=== PATIENT | female | born 1990 | race Caucasian/White ===

== ENCOUNTER 2016-06-15 14:00 | Inpatient (IN) | payer MEDICAID, OTHER ==
--- NOTE | 2016-06-15 17:08 | ED ---
Psych HPI - General Chief Complaint: Psychiatric Symptoms Stated Complaint: Mental Health Time Seen by Provider: 06/15/16 14:07 Source: patient, police Mode of arrival: ambulatory - History of Present Illness Initial Comments: Patient complains of depression and suicidal ideation. She has no fever or chills. She has no chest pain or shortness of breath. She has no belly or back pain. She has not taken any illicit substances. She has not tried to harm herself today. - Related Data Home Medications Medication Instructions Recorded Confirmed Divalproex Sodium [Depakote] 1,000 mg PO HS 06/15/16 06/15/16 Lurasidone [Latuda] 80 mg PO HS 06/15/16 06/15/16 risperiDONE 3 mg PO DAILY 06/15/16 06/15/16 Allergies Allergy/AdvReac Type Severity Reaction Status Date / Time acetaminophen [From Tylenol] Allergy Vomiting Verified 06/15/16 14:40 ibuprofen [From Motrin] Allergy Vomiting Verified 06/15/16 14:40 Review of Systems ROS Statement: Those systems with pertinent positive or pertinent negative responses have been documented in the HPI. ROS Other: All systems not noted in ROS Statement are negative. Past Medical History Additional Past Medical History / Comment(s): chronic back and leg pain, h/o leukemia History of Any Multi-Drug Resistant Organisms: None Reported Past Surgical History: Appendectomy Additional Past Surgical History / Comment(s): abdominoplasty Past Psychological History: Anxiety, Bipolar, Depression Smoking Status: Former smoker Past Alcohol Use History: None Reported Additional Past Alcohol Use History / Comment(s): Patient is a smoker one pack per day for 3 years. She denies any medical marijuana, marijuana, street drug use. She denies any alcohol use. She is single and has 3 children. Past Drug Use History: None Reported - Past Family History Father Additional Family Medical History / Comment(s): Father is 52 years of age with possible coronary artery disease. Mother Additional Family Medical History / Comment(s): Mother from emphysema. Brother(s) Additional Family Medical History / Comment(s): Patient has 2 brothers with no major medical problems. Patient does not have any sisters. General Exam Limitations: no limitations General appearance: alert, in no apparent distress Head exam: Present: atraumatic, normocephalic, normal inspection Eye exam: Present: normal appearance, PERRL, EOMI. Absent: scleral icterus, conjunctival injection, periorbital swelling ENT exam: Present: normal exam, mucous membranes moist Neck exam: Present: normal inspection. Absent: tenderness, meningismus, lymphadenopathy Respiratory exam: Present: normal lung sounds bilaterally. Absent: respiratory distress, wheezes, rales, rhonchi, stridor Cardiovascular Exam: Present: regular rate, normal rhythm, normal heart sounds. Absent: systolic murmur, diastolic murmur, rubs, gallop, clicks GI/Abdominal exam: Present: soft, normal bowel sounds. Absent: distended, tenderness, guarding, rebound, rigid Extremities exam: Present: normal inspection, full ROM, normal capillary refill. Absent: tenderness, pedal edema, joint swelling, calf tenderness Back exam: Present: normal inspection Neurological exam: Present: alert, oriented X3, CN II-XII intact Psychiatric exam: Present: normal affect, normal mood Skin exam: Present: warm, dry, intact, normal color. Absent: rash Course Vital Signs 06/15/16 14:03 Temperature 97.0 F L Pulse Rate 97 Respiratory 20 Rate Blood Pressure 117/79 O2 Sat by Pulse 97 Oximetry Medical Decision Making - Medical Decision Making Patient presents with suicidal ideation. Alcohol level is 0. Patient was about a by psychiatry. She will be admitted to their service. - Lab Data Lab Results 06/15/16 Range/Units 14:49 Urine Opiates Screen Detected H (NotDetected) Ur Oxycodone Screen Not Detected (NotDetected) Urine Methadone Screen Detected H (NotDetected) Ur Propoxyphene Screen Not Detected (NotDetected) Ur Barbiturates Screen Not Detected (NotDetected) U Tricyclic Antidepress Not Detected (NotDetected) Ur Phencyclidine Scrn Not Detected (NotDetected) Ur Amphetamines Screen Not Detected (NotDetected) U Methamphetamines Scrn Not Detected (NotDetected) U Benzodiazepines Scrn Not Detected (NotDetected) Urine Cocaine Screen Not Detected (NotDetected) U Marijuana (THC) Screen Not Detected (NotDetected) Disposition Clinical Impression: Depression Disposition: TRANSFER TO PSYCH HOSP/UNIT Condition: Fair Time of Disposition: 17:08
[2016-06-15] MEDS ORDERED: LORazepam 2 MG/ML SYRINGE IM STA (17:47)
[2016-06-15] MEDS ORDERED: traMADol 50 MG TAB PO STA (19:30)
[2016-06-15] MEDS ORDERED: MAGNESIUM HYDROXIDE 2,400 MG/10 ML CUP PO PRN (20:38)
[2016-06-15] MEDS ORDERED: LORazepam 2 MG/ML SYRINGE IM PRN (20:48)
[2016-06-15] MEDS ORDERED: WATER FOR INJECTION, STERILE 10 ML IV ONE (21:17)
[2016-06-15] MEDS: ZIPRASIDONE 20 MG VIAL IM PRN (21:32)
[2016-06-15] MEDS: DIVALPROEX 500 MG TABLET.DR PO SCH (21:46)
[2016-06-15] MEDS: MIRTAZAPINE 15 MG TAB PO SCH (21:46)
[2016-06-15] MEDS: clonazePAM 1 MG TAB PO SCH (21:46)
[2016-06-15] MEDS: TRIHEXYPHENIDYL 2 MG TAB PO SCH (22:04)
[2016-06-16] MEDS ORDERED: LEVOTHYROXINE 50 MCG TAB PO SCH (06:30)
[2016-06-16] MEDS: TRIHEXYPHENIDYL 2 MG TAB PO SCH ×3 (08:28→20:18)
[2016-06-16] MEDS: DIVALPROEX 500 MG TABLET.DR PO SCH ×2 (08:30→20:19)
[2016-06-16 08:47] LABS: Basophils # (A) 0.1 k/uL (0-0.2); Basophils % (A) 1 %; CHCM 34.5; Eosinophils # (A) 0.2 k/uL (0-0.7); Eosinophils % (A) 3 %; HCT 41.3 % (34.0-46.0); HDW 2.49; HGB 13.8 gm/dL (11.4-16.0); Luc # (Auto) 0.13; Luc % (Auto) 2; Lymphocytes # (A) 2.4 k/uL (1.0-4.8); Lymphocytes % (A) 37 %; MCH 29.9 pg (25.0-35.0); MCHC 33.3 g/dL (31.0-37.0); Mean Platelet Volume 6.9; Monocytes # (A) 0.5 k/uL (0-1.0); Monocytes % (A) 8 %; Neutrophils # (A) 3.3 k/uL (1.3-7.7); Neutrophils % (A) 50 %; RBC 4.59 m/uL (3.80-5.40); RDW 12.7 % (11.5-15.5); WBC 6.5 k/uL (3.8-10.6); WBC (Perox) 6.93
[2016-06-16 09:12] LABS: ALT 60 U/L (9-52); AST 40 U/L (14-36); Alkaline Phosphatase 59 U/L (38-126); Anion Gap 15 mmol/L; Blood Urea Nitrogen 13 mg/dL (7-17); Calcium 9.3 mg/dL (8.4-10.2); Carbon Dioxide 30 mmol/L (22-30); Chloride 97 mmol/L (98-107); Glucose 140 mg/dL (74-99); Non-African American GFR(MDRD) >60 (>60 ml/min/1.73 sqM); Potassium 3.8 mmol/L (3.5-5.1); Sodium 142 mmol/L (137-145); Total Bilirubin 0.5 mg/dL (0.2-1.3); Total Protein 7.3 g/dL (6.3-8.2)
[2016-06-16] MEDS: NICOTINE 7MG/24HR PATCH TRANSDERM SCH (12:48)
[2016-06-16] MEDS: DICLOFENAC SODIUM GEL 100 GM TUBE TOPICAL SCH ×3 (13:36→20:19)
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
[2016-06-16] MEDS ORDERED: HYDROcodone/APAP 10-325MG 1 EACH TAB PO ONE (14:23)
[2016-06-16] MEDS ORDERED: WATER FOR INJECTION, STERILE 10 ML IV ONE ×2 (14:24→20:32)
[2016-06-16] MEDS: ZIPRASIDONE 20 MG VIAL IM PRN (14:26)
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
[2016-06-16] MEDS: MIRTAZAPINE 15 MG TAB PO SCH (20:19)
[2016-06-16] MEDS: clonazePAM 1 MG TAB PO SCH (20:19)
[2016-06-16] MEDS: HYDROcodone/APAP 5-325MG 1 EACH TAB PO PRN (20:23)
[2016-06-17] MEDS: LORazepam 1 MG TAB PO PRN ×2 (01:47→11:22)
[2016-06-17] MEDS: TRIHEXYPHENIDYL 2 MG TAB PO SCH ×4 (08:35→21:07)
[2016-06-17] MEDS: NICOTINE 7MG/24HR PATCH TRANSDERM SCH (08:39)
[2016-06-17] MEDS: DIVALPROEX 500 MG TABLET.DR PO SCH ×2 (08:39→21:03)
[2016-06-17] MEDS: DICLOFENAC SODIUM GEL 100 GM TUBE TOPICAL SCH ×4 (08:39→21:09)
[2016-06-17] MEDS: HYDROcodone/APAP 5-325MG 1 EACH TAB PO PRN (08:40)
[2016-06-17] MEDS ORDERED: NICOTINE 7MG/24HR PATCH TRANSDERM STA (11:46)
--- NOTE | 2016-06-17 13:17 | P.PN ---
Subjective Psychiatric progress notes. Patient repeatedly comes to the office wanting more pain medications and also at a higher dose of Habitrol. Though she claimed that she has not been smoking lately according to her she was using Habitrol 21 mg on a daily basis as it calms her down and wants to continue on it. She also persistently complains of with his somatic symptoms aches and pains all over the body, that she cannot walk straight because of her hips are injured, and pain chest and she believes there is something wrong with her breast and so on. She is requesting a higher dose of [place]. Also asking for medication for ADHD and claims that she had done well while she was on methylphenidate. Has not been attending treatment activities. Mental status. Slightly heavy built female with fair grooming, rather restless walking on the floor constantly coming to my office or at the nurses station asking for more medication. During the evaluation she was spontaneously talking going to tangents focusing on her physical symptoms and in different parts of her body mostly pain and stating that she is dying because of some disease nobody seemed to recognize. Patient is hyperverbal and tangential. Expresses delusional ideations regarding devilr trying to get to her and people call her crazy when she talks about this and about God. Patient had slept well. And regular with her eating habits. Some medication adjustment been done i.e. increase Habitrol 14 mg every 24 hours , increased [place] to 7.5/325 twice a day. She also started on Lexapro. Objective - Vital Signs Vital signs: Vital Signs Temp 97.8 F 06/17/16 01:48 Pulse 97 06/17/16 09:24 Resp 16 06/17/16 09:24 BP 135/72 06/17/16 09:24 Pulse Ox 97 06/15/16 18:46 - Labs CBC & Chem 7: 06/16/16 08:32 06/16/16 08:32
[2016-06-17] MEDS: MAG HYDROX/AL HYDROX/SIMETH 30 ML CUP PO PRN ×2 (13:19→18:46)
[2016-06-17] MEDS: HYDROcodone/APAP 7.5-325MG 1 EACH TAB PO SCH (17:39)
[2016-06-17] MEDS ORDERED: LURASIDONE 80 MG TAB PO SCH (18:30)
[2016-06-17] MEDS: MIRTAZAPINE 15 MG TAB PO SCH (21:02)
[2016-06-17] MEDS: clonazePAM 1 MG TAB PO SCH (21:03)
[2016-06-18] MEDS: LORazepam 1 MG TAB PO PRN (01:23)
[2016-06-18] MEDS: HYDROcodone/APAP 7.5-325MG 1 EACH TAB PO SCH ×2 (07:20→17:30)
[2016-06-18] MEDS: MAG HYDROX/AL HYDROX/SIMETH 30 ML CUP PO PRN ×2 (07:58→18:45)
[2016-06-18] MEDS: NICOTINE 14MG/24HR PATCH TRANSDERM SCH (09:02)
[2016-06-18] MEDS: ESCITALOPRAM 10 MG TAB PO SCH (09:02)
[2016-06-18] MEDS: TRIHEXYPHENIDYL 2 MG TAB PO SCH ×3 (09:03→20:36)
[2016-06-18] MEDS: DIVALPROEX 500 MG TABLET.DR PO SCH (09:05)
[2016-06-18] MEDS: DICLOFENAC SODIUM GEL 100 GM TUBE TOPICAL SCH ×4 (09:06→20:27)
[2016-06-18] MEDS ORDERED: HALOPERIDOL 5 MG TAB PO STA (11:16)
[2016-06-18] MEDS ORDERED: WATER FOR INJECTION, STERILE 10 ML IV ONE (12:36)
[2016-06-18] MEDS: ZIPRASIDONE 20 MG VIAL IM PRN (12:38)
[2016-06-18] MEDS ORDERED: QUEtiapine 50 MG TAB PO SCH (13:00)
--- NOTE | 2016-06-18 13:24 | P.PN ---
Subjective Psychiatric progress notes. Though patient is showing some limited improvement, by and large she remains restless easily agitated and pacing the floor on the unit. Constantly focusing on the need for increasing her pain medications and states that she has possibly cancer and is dying and nobody cares. Patient slept rather well and her participation in the milieu based treatment programs are limited as she becomes quite distracted and interfering with the treatment activity with the result she was asked to leave if she cannot maintain a certain degree of self- control. Patient comes to the office frequently with one complained or other and asking for more medications. Mental status. Patient is limited in her grooming and constantly touching the tongue with her fingers and rubs on the face claiming that her face is dry and that's why she is doing this. Patient speaks spontaneously talking about her various physical symptoms and the need for higher and frequent dose off her pain medications. Patient is hyperverbal often with significant tangentiality and showing her preoccupation with somatic concerns. Thought process somewhat rapid and tangential also. Though she did not report being depressed her somatic preoccupation and anxiety indicates possibility of an underlying depressive trend. Slept well last night. Indicates that she cannot take Neurontin or Latuda. Hence Latuda is discontinued. Patient is limited in her insight and judgment. In view of her agitated state Haldol 5 mg 4 times a day ordered. Objective - Vital Signs Vital signs: Vital Signs Temp 97.5 F L 06/18/16 06:56 Pulse 77 06/18/16 06:56 Resp 16 06/18/16 06:56 BP 133/72 06/18/16 06:56 Pulse Ox 97 06/15/16 18:46 - Labs CBC & Chem 7: 06/16/16 08:32 06/16/16 08:32
[2016-06-18] MEDS: DIVALPROEX ER 500 MG TAB.ER.24H PO SCH ×2 (15:49→20:27)
[2016-06-18] MEDS: HALOPERIDOL 5 MG TAB PO SCH ×2 (15:51→20:28)
[2016-06-18] MEDS: MIRTAZAPINE 15 MG TAB PO SCH (20:27)
[2016-06-18] MEDS: clonazePAM 1 MG TAB PO SCH (20:27)
[2016-06-19] MEDS: ESCITALOPRAM 10 MG TAB PO SCH (08:22)
[2016-06-19] MEDS: NICOTINE 14MG/24HR PATCH TRANSDERM SCH (08:22)
[2016-06-19] MEDS: HYDROcodone/APAP 7.5-325MG 1 EACH TAB PO SCH ×2 (08:23→17:27)
[2016-06-19] MEDS: DICLOFENAC SODIUM GEL 100 GM TUBE TOPICAL SCH ×4 (08:24→22:58)
[2016-06-19] MEDS: HALOPERIDOL 5 MG TAB PO SCH ×3 (08:24→20:32)
[2016-06-19] MEDS: DIVALPROEX ER 500 MG TAB.ER.24H PO SCH ×3 (08:24→20:32)
[2016-06-19] MEDS: TRIHEXYPHENIDYL 2 MG TAB PO SCH ×3 (08:29→20:33)
[2016-06-19] MEDS: MAG HYDROX/AL HYDROX/SIMETH 30 ML CUP PO PRN ×3 (10:51→21:14)
[2016-06-19] MEDS: LORazepam 1 MG TAB PO PRN (10:51)
[2016-06-19] MEDS ORDERED: WATER FOR INJECTION, STERILE 10 ML IV ONE (14:18)
[2016-06-19] MEDS ORDERED: ZIPRASIDONE 20 MG VIAL IM ONE (14:19)
[2016-06-19] MEDS: ZIPRASIDONE 20 MG VIAL IM PRN (14:19)
--- NOTE | 2016-06-19 14:59 | P.PN ---
Subjective Psychiatric progress notes. Patient's mental status and overall activity has not shown any significant improvement though she is not as persistent in coming to my office repeatedly and asking for increased pain medications. All the same patient indicates that she is suffering from pain and I am letting her day from pain by refusing to increase her medications. She reported that she slept very well but has not been attending any of the treatment activities as she claimed that she has ADHD and could not sit and concentrate. Then asking for Adderall or Concerta. Mental status examination. Patient is a relatively average built female dressed in her own clothes, somewhat restless and pacing the floor back and forth talking to herself and overheard saying how painful her condition is and nobody is here helping her and letting her day. Patient comes readily for the evaluation and spontaneously started speaking about "her suffering ". Speech was spontaneous with increased in rate. Thought processes rapid and tangential. Patient is preoccupied with her fears of having some serious illness mostly related to pain. Affect inappropriate. Anxious mood. Limited in insight and judgment. Continue current treatment plans. Objective - Vital Signs Vital signs: Vital Signs Temp 97.5 F L 06/18/16 06:56 Pulse 77 06/18/16 06:56 Resp 16 06/18/16 06:56 BP 133/72 06/18/16 06:56 Pulse Ox 97 06/15/16 18:46 - Labs CBC & Chem 7: 06/16/16 08:32 06/16/16 08:32
[2016-06-19] MEDS: clonazePAM 1 MG TAB PO SCH (20:05)
[2016-06-19] MEDS: MIRTAZAPINE 15 MG TAB PO SCH (20:06)
[2016-06-20] MEDS: LORazepam 1 MG TAB PO PRN ×3 (02:53→18:13)
[2016-06-20] MEDS: MAG HYDROX/AL HYDROX/SIMETH 30 ML CUP PO PRN ×3 (03:11→18:34)
[2016-06-20] MEDS: NICOTINE 14MG/24HR PATCH TRANSDERM SCH (08:12)
[2016-06-20] MEDS: HYDROcodone/APAP 7.5-325MG 1 EACH TAB PO SCH ×3 (08:13→17:30)
[2016-06-20] MEDS: DICLOFENAC SODIUM GEL 100 GM TUBE TOPICAL SCH ×4 (08:14→20:53)
[2016-06-20] MEDS: ESCITALOPRAM 10 MG TAB PO SCH (08:16)
[2016-06-20] MEDS: HALOPERIDOL 5 MG TAB PO SCH ×3 (09:19→20:55)
[2016-06-20] MEDS: TRIHEXYPHENIDYL 2 MG TAB PO SCH ×3 (09:19→20:56)
[2016-06-20] MEDS: DIVALPROEX ER 500 MG TAB.ER.24H PO SCH ×3 (09:19→20:55)
--- NOTE | 2016-06-20 15:33 | P.PN ---
Subjective Psychiatric progress notes. Patient was been showing restlessness and constantly talking about her need for ritalin, and increase of pain medications as well as benzodiazepines has been pacing back and forth on the unit, trying to come to my office so many times with the same request, however comparatively much less than at the time of admission. Patient is constantly complaining of pain and anxiousness. Has been sleeping well. She has not been able to attend any of the milieu based treatment activities so far because of her restless fidgety nature. Mental status. Patient is dressed in her own clothes and frequently pacing in that sense certain degree of psychomotor restlessness present. When seen patient was hyperverbal with rapid speech and thought process, focusing on her request for more medications. Patient states that she is depressed and quite anxious although there is no depressive behavior noticeable, on the other hand she is somewhat hyperactive and hyperverbal. Maintains good eye contact when she is in the office and answers to questions but then goes into tangents to other areas. No evidence of any hallucinatory experience though some of her somatic preoccupations almost borders to delusional thinking. Limited in insight and judgment. Continue current treatment plans. On the promise that she would agree for Tylenol 5/325 from tomorrow just for 1 day she will be on 7.5/325 3 times a day just for today. Objective - Vital Signs Vital signs: Vital Signs Temp 97.6 F 06/20/16 06:49 Pulse 73 06/20/16 06:49 Resp 20 06/20/16 06:49 BP 99/71 06/20/16 06:49 Pulse Ox 97 06/15/16 18:46 Intake & Output 06/19/16 06/20/16 06/20/16 18:59 06:59 18:59 Weight 85.5 kg - Labs CBC & Chem 7: 06/16/16 08:32 06/16/16 08:32
[2016-06-20] MEDS: clonazePAM 1 MG TAB PO SCH (20:52)
[2016-06-20] MEDS: MIRTAZAPINE 15 MG TAB PO SCH (20:53)
[2016-06-21 07:19] VITALS: RESP 16
[2016-06-21] MEDS: DICLOFENAC SODIUM GEL 100 GM TUBE TOPICAL SCH ×5 (08:24→20:10)
[2016-06-21] MEDS: DIVALPROEX ER 500 MG TAB.ER.24H PO SCH ×3 (08:24→20:06)
[2016-06-21] MEDS: HALOPERIDOL 5 MG TAB PO SCH ×3 (08:24→20:06)
[2016-06-21] MEDS: ESCITALOPRAM 10 MG TAB PO SCH (08:24)
[2016-06-21] MEDS: NICOTINE 14MG/24HR PATCH TRANSDERM SCH (08:25)
[2016-06-21] MEDS: HYDROcodone/APAP 7.5-325MG 1 EACH TAB PO SCH (08:25)
[2016-06-21] MEDS: TRIHEXYPHENIDYL 2 MG TAB PO SCH ×3 (08:26→20:09)
[2016-06-21] MEDS: LORazepam 1 MG TAB PO PRN ×2 (09:48→17:46)
[2016-06-21] MEDS ORDERED: WATER FOR INJECTION, STERILE 10 ML IV ONE (10:38)
[2016-06-21] MEDS: ZIPRASIDONE 20 MG VIAL IM PRN (10:38)
[2016-06-21] MEDS ORDERED: ZIPRASIDONE 20 MG VIAL IM ONE (10:38)
--- NOTE | 2016-06-21 14:19 | P.PN ---
Subjective Psychiatric progress notes. Patient is a 25-year-old white female who has been restless and anxious with delusional-like preoccupation of having some illness that is making her whole body ache and often coming asking for more pain medication, stating that otherwise she would be dying. Patient is quite repetitious with her stories. Has not been participating in any of the treatment activities because of her intrusive behavior. Slept well. Seems to be taking fair care of her needs. Mental status. Patient is an average built adequately groomed female who is restless and pacing. Dressed in her own clothes she readily comes for evaluation and spontaneously starts talking about her fears of having some illness and the persistent pain. Patient claims that she is quite anxious and depressed. Speech is spontaneous and rapid. Thought process also rapid and shows hypochondriac or preoccupation with her somatic symptoms. No evidence of any other delusions or hallucinations. Limited as far as insight and judgment. Continue current treatment plans. Objective - Vital Signs Vital signs: Vital Signs Temp 97.7 F 06/21/16 07:16 Pulse 69 06/21/16 07:16 Resp 16 06/21/16 07:16 BP 99/71 06/20/16 06:49 Pulse Ox 97 06/15/16 18:46 Intake & Output 06/20/16 06/21/16 06/21/16 18:59 06:59 18:59 Weight 85.5 kg - Labs CBC & Chem 7: 06/16/16 08:32 06/16/16 08:32
[2016-06-21] MEDS: HYDROcodone/APAP 5-325MG 1 EACH TAB PO SCH ×2 (16:19→20:07)
[2016-06-21] MEDS ORDERED: HYDROcodone/APAP 7.5-325MG 1 EACH TAB PO SCH (18:30)
[2016-06-21] MEDS: clonazePAM 1 MG TAB PO SCH (20:07)
[2016-06-21] MEDS: MIRTAZAPINE 15 MG TAB PO SCH (20:08)
[2016-06-21] MEDS: MAG HYDROX/AL HYDROX/SIMETH 30 ML CUP PO PRN (21:10)
[2016-06-22] MEDS: LORazepam 1 MG TAB PO PRN (06:31)
[2016-06-22 06:53] VITALS: BP 126/84; PULSE 74; TEMP 97.8
[2016-06-22] MEDS: MAG HYDROX/AL HYDROX/SIMETH 30 ML CUP PO PRN (07:01)
[2016-06-22] MEDS: HALOPERIDOL 5 MG TAB PO SCH (08:47)
[2016-06-22] MEDS: HYDROcodone/APAP 5-325MG 1 EACH TAB PO SCH (08:48)
[2016-06-22] MEDS: ESCITALOPRAM 10 MG TAB PO SCH (08:48)
[2016-06-22] MEDS: DICLOFENAC SODIUM GEL 100 GM TUBE TOPICAL SCH ×2 (08:49→11:57)
[2016-06-22] MEDS: NICOTINE 14MG/24HR PATCH TRANSDERM SCH (08:49)
[2016-06-22] MEDS: DIVALPROEX ER 500 MG TAB.ER.24H PO SCH (08:50)
[2016-06-22] MEDS: TRIHEXYPHENIDYL 2 MG TAB PO SCH (08:50)
[2016-06-22] MEDS ORDERED: clonazePAM 0.5 MG TAB PO PRN (10:48)
[2016-06-22] MEDS ORDERED: HALOPERIDOL DECANOATE 50 MG/ML 1 ML VIAL IM STA (10:49)
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
== END 2016-06-22 12:46 | disposition home or self-care (01) | DRG 885 ==
LOC: EC 14:00 → 3MHU 19:45
PROVIDERS: ADMIT Psychiatry & Neurology Psychiatry; ATTEND Psychiatry & Neurology Psychiatry
DX: F25.9 Schizoaffective disorder, unspecified (principal); F11.20 Opioid dependence, uncomplicated; R45.851 Suicidal ideations; Z72.0 Tobacco use; F60.9 Personality disorder, unspecified; G89.4 Chronic pain syndrome
CPT/HCPCS: 80053; 80300; 82075; 84443; 85025; 96372; 99285

== ENCOUNTER 2016-07-27 07:26 | Emergency (ER) | payer OTHER ==
[2016-07-27 07:34] VITALS: TEMP 97.1
[2016-07-27] MEDS ORDERED: ONDANSETRON 4 MG/2 ML VIAL IVP STA (07:55)
[2016-07-27] MEDS ORDERED: SODIUM CHLORIDE 0.9% 500 ML IV STA (07:55)
[2016-07-27] MEDS ORDERED: LORazepam 2 MG/ML SYRINGE IV STA ×2 (08:11→10:20)
[2016-07-27] MEDS ORDERED: HALOPERIDOL LACTATE 5 MG/ML 1 ML VIAL IVP STA (08:16)
[2016-07-27] MEDS ORDERED: LORazepam 2 MG/ML SYRINGE IM STA (08:17)
[2016-07-27 08:21] LABS: Basophils # (A) 0.1 k/uL (0-0.2); Basophils % (A) 1 %; CH 31.3; Eosinophils # (A) 0.3 k/uL (0-0.7); Eosinophils % (A) 2 %; HCT 47.7 % (34.0-46.0); HDW 2.74; HGB 16.2 gm/dL (11.4-16.0); Luc # (Auto) 0.14; Luc % (Auto) 1; Lymphocytes # (A) 1.4 k/uL (1.0-4.8); Lymphocytes % (A) 12 %; MCH 30.4 pg (25.0-35.0); MCHC 33.9 g/dL (31.0-37.0); MCV 89.7 fL (80.0-100.0); Mean Platelet Volume 7.4; Monocytes % (A) 9 %; Neutrophils # (A) 8.7 k/uL (1.3-7.7); Neutrophils % (A) 75 %; RBC 5.32 m/uL (3.80-5.40); RDW 12.3 % (11.5-15.5); WBC 11.5 k/uL (3.8-10.6); WBC (Perox) 11.42
[2016-07-27 08:23] LABS: Appearance,Urine Clear (Clear); Bilirubin,Urine Negative (Negative); Glucose,Urine (UA) Negative (Negative); Ketones,Urine Negative (Negative); Leukocyte Esterase,Urine Negative (Negative); Nitrite,Urine Negative (Negative); Protein,Urine Negative (Negative); Specific Gravity,Urine 1.012 (1.001-1.035); UA Billing (MACRO vs. MICRO) CHEM; Urobilinogen,Urine <2.0 mg/dL (<2.0)
--- NOTE | 2016-07-27 08:23 | ED ---
General Adult HPI - General Chief complaint: Nausea/Vomiting/Diarrhea Stated complaint: Vomiting/back/hip pain Time Seen by Provider: 07/27/16 08:04 Source: patient, RN notes reviewed Mode of arrival: wheelchair Limitations: no limitations - History of Present Illness Initial comments: 25-year-old female presents to the emergency department with a chief complaint of intractable pain. Patient has a history of being on narcotics. Patient does not have these at this time. Patient was sent here due to to her boyfriend saying that she was having increased yelling agitation patient has been swearing. The boyfriend's petitioner states that she is to commit suicide. The patient states she is here because she feels like she is going to . Patient states she's been miserable pain. Patient states that everywhere hurts. Patient is yelling patient is calling the staff swear words patient has aggressive language. Patient is demanding that she receives pain medication. Patient at this time states that she "patient is not crazy" she is just here for her pain. She states she hasn't been suicidal or homicidal. Patient denies any recent fever, chills, shortness of breath, chest pain, nausea vomiting, numbness or tingling, dysuria or hematuria, constipation or diarrhea, headaches or visual changes, or any other current symptoms. - Related Data Home Medications Medication Instructions Recorded Confirmed Clindamycin Topical Soln 1 applic TOPICAL BID 07/27/16 07/27/16 [Cleocin-T Topical Soln] HYDROcodone/APAP 10-325MG [[place] 1 tab PO TID PRN 07/27/16 07/27/16 10-325] Norgestimate-Ethinyl Estradiol 1 tab PO DAILY 07/27/16 07/27/16 [Tri-Sprintec Tablet] metroNIDAZOLE [Flagyl] 250 mg PO BID 07/27/16 07/27/16 Previous Rx's Medication Instructions Recorded Diclofenac Sodium Gel [Voltaren 4 gm TOPICAL QID #1 tube 06/22/16 Gel] Divalproex ER [Depakote ER] 500 mg PO TID #90 tab.er.24h 06/22/16 Escitalopram [Lexapro] 10 mg PO DAILY #30 tab 06/22/16 Haloperidol [Haldol] 5 mg PO TID #90 tab 06/22/16 Mirtazapine [Remeron] 30 mg PO HS #30 tab 06/22/16 Nicotine 14Mg/24Hr Patch [Habitrol] 1 patch TRANSDERM DAILY #30 patch 06/22/16 Trihexyphenidyl [Artane] 5 mg PO TID #90 tab 06/22/16 clonazePAM [KlonoPIN] 0.5 mg PO TID PRN #60 tab 06/22/16 clonazePAM [KlonoPIN] 2 mg PO HS #60 tab 06/22/16 Allergies Allergy/AdvReac Type Severity Reaction Status Date / Time acetaminophen [From Tylenol] AdvReac Vomiting Verified 07/27/16 07:30 ibuprofen [From Motrin] AdvReac Vomiting Verified 07/27/16 07:30 Review of Systems ROS Statement: Those systems with pertinent positive or pertinent negative responses have been documented in the HPI. ROS Other: All systems not noted in ROS Statement are negative. Past Medical History Additional Past Medical History / Comment(s): chronic back and leg pain, h/o childhood leukemia History of Any Multi-Drug Resistant Organisms: None Reported Past Surgical History: Appendectomy Additional Past Surgical History / Comment(s): abdominoplasty Past Psychological History: Anxiety, Bipolar, Depression Smoking Status: Former smoker Past Alcohol Use History: None Reported Additional Past Alcohol Use History / Comment(s): Patient is a smoker 3 packs per day for 3 years and has now cut back to 3 cigarettes per day. She denies any medical marijuana, marijuana, street drug use. She denies any alcohol use. She is single and has 3 children; one daughter and 2 sons with no major medical problems. She lives with her boyfriend and his roommates. Past Drug Use History: None Reported - Past Family History Father Additional Family Medical History / Comment(s): Father is 52 years of age with possible coronary artery disease. Mother Additional Family Medical History / Comment(s): Mother from emphysema at age 48. Brother(s) Additional Family Medical History / Comment(s): Patient has 2 brothers with no major medical problems. Patient does not have any sisters. General Exam - General Exam Comments Initial Comments: General: The patient is awake and alert, in no distress, and does not appear acutely ill. Eye: Pupils are equal, round and reactive to light, extra-ocular movements are intact; there is normal conjunctiva bilaterally. No signs of icterus. Ears, nose, mouth and throat: There are moist mucous membranes and no oral lesions. Neck: The neck is supple, there is no tenderness. Cardiovascular: There is a regular rate and rhythm. No murmur, rub or gallop is appreciated. Respiratory: Lungs are clear to auscultation, respirations are non-labored, breath sounds are equal. No wheezes, stridor, rales, or rhonchi. Gastrointestinal: Soft, non-distended, non-tender abdomen without masses or organomegaly noted. There is no rebound or guarding present. No CVA tenderness. Bowel sounds are unremarkable. Back: There is no tenderness to palpation in the midline. There is no obvious deformity. No rashes noted. Musculoskeletal: Normal ROM, no tenderness, There is no pedal edema. There is no calf tenderness or swelling. Sensation intact. Pulses equal bilaterally 2+. Neurological: CN II-XII intact, There are no obvious motor or sensory deficits. Coordination appears grossly intact. Speech is normal. Skin: Skin is warm and dry and no rashes or lesions are noted. Psychiatric: Cooperative, manic, patient denies any suicidal or homicidal ideation. Limitations: no limitations Course Vital Signs 07/27/16 07/27/16 07:30 10:31 Temperature 97.1 F L Pulse Rate 110 H 120 H Respiratory 18 16 Rate Blood Pressure 147/79 130/84 O2 Sat by Pulse 99 97 Oximetry Medical Decision Making - Medical Decision Making 25-year-old female presents with intractable pain. At this time patient's exam is negative. This time patient is seeking narcotic pain medication she is informed that she will not receive this for months. Patient started to yell and scream in the room patient call staff multiple names includes that she is not crazy. The boyfriend states that she stated that she was suicidal on the position however he is unreachable. At this time patient's laboratory is reviewed that does not show any acute medical emergencies. patient is cleared to be evaluated by psychiatry. The patient continues to deny suicidal or homicidal lesions and does contract for safety. This time she will be discharged and to [facility]'s care she will be going to perform an seen a psychiatrist today. This was discussed with the plan with the patient and she is in agreement. She does feel safe in this plan. - Lab Data Result diagrams: 07/27/16 07:45 07/27/16 07:45 Lab Results 07/27/16 07/27/16 07/27/16 Range/Units 07:45 07:45 07:45 WBC 11.5 H (3.8-10.6) k/uL RBC 5.32 (3.80-5.40) m/uL Hgb 16.2 H (11.4-16.0) gm/dL Hct 47.7 H (34.0-46.0) % MCV 89.7 (80.0-100.0) fL MCH 30.4 (25.0-35.0) pg MCHC 33.9 (31.0-37.0) g/dL RDW 12.3 (11.5-15.5) % Plt Count 212 (150-450) k/uL Neutrophils % 75 % Lymphocytes % 12 % Monocytes % 9 % Eosinophils % 2 % Basophils % 1 % Neutrophils # 8.7 H (1.3-7.7) k/uL Lymphocytes # 1.4 (1.0-4.8) k/uL Monocytes # 1.0 (0-1.0) k/uL Eosinophils # 0.3 (0-0.7) k/uL Basophils # 0.1 (0-0.2) k/uL Sodium 142 (137-145) mmol/L Potassium 4.1 (3.5-5.1) mmol/L Chloride 101 (98-107) mmol/L Carbon Dioxide 27 (22-30) mmol/L Anion Gap 14 mmol/L BUN 7 (7-17) mg/dL Creatinine 0.61 (0.52-1.04) mg/dL Est GFR (MDRD) Af Amer >60 (>60 ml/min/1.73 sqM) Est GFR (MDRD) Non-Af >60 (>60 ml/min/1.73 sqM) Glucose 119 H (74-99) mg/dL Calcium 10.1 (8.4-10.2) mg/dL Total Bilirubin 0.5 (0.2-1.3) mg/dL AST 24 (14-36) U/L ALT 45 (9-52) U/L Alkaline Phosphatase 69 (38-126) U/L Total Protein 8.4 H (6.3-8.2) g/dL Albumin 5.0 (3.5-5.0) g/dL Urine Color Yellow Urine Appearance Clear (Clear) Urine pH 7.0 (5.0-8.0) Ur Specific [place] 1.012 (1.001-1.035) Urine Protein Negative (Negative) Urine Glucose (UA) Negative (Negative) Urine Ketones Negative (Negative) Urine Blood Negative (Negative) Urine Nitrate Negative (Negative) Urine Bilirubin Negative (Negative) Urine Urobilinogen <2.0 (<2.0) mg/dL Ur Leukocyte Esterase Negative (Negative) Urine HCG, Qual (Not Detectd) Salicylates <1.0 mg/dL Urine Opiates Screen Not Detected (NotDetected) Ur Oxycodone Screen Not Detected (NotDetected) Urine Methadone Screen Not Detected (NotDetected) Ur Propoxyphene Screen Not Detected (NotDetected) Acetaminophen <10.0 ug/mL Ur Barbiturates Screen Not Detected (NotDetected) U Tricyclic Antidepress Not Detected (NotDetected) Ur Phencyclidine Scrn Not Detected (NotDetected) Ur Amphetamines Screen Not Detected (NotDetected) U Methamphetamines Scrn Not Detected (NotDetected) U Benzodiazepines Scrn Not Detected (NotDetected) Urine Cocaine Screen Not Detected (NotDetected) U Marijuana (THC) Screen Not Detected (NotDetected) Serum Alcohol <10 mg/dL 07/27/16 Range/Units 07:45 WBC (3.8-10.6) k/uL RBC (3.80-5.40) m/uL Hgb (11.4-16.0) gm/dL Hct (34.0-46.0) % MCV (80.0-100.0) fL MCH (25.0-35.0) pg MCHC (31.0-37.0) g/dL RDW (11.5-15.5) % Plt Count (150-450) k/uL Neutrophils % % Lymphocytes % % Monocytes % % Eosinophils % % Basophils % % Neutrophils # (1.3-7.7) k/uL Lymphocytes # (1.0-4.8) k/uL Monocytes # (0-1.0) k/uL Eosinophils # (0-0.7) k/uL Basophils # (0-0.2) k/uL Sodium (137-145) mmol/L Potassium (3.5-5.1) mmol/L Chloride (98-107) mmol/L Carbon Dioxide (22-30) mmol/L Anion Gap mmol/L BUN (7-17) mg/dL Creatinine (0.52-1.04) mg/dL Est GFR (MDRD) Af Amer (>60 ml/min/1.73 sqM) Est GFR (MDRD) Non-Af (>60 ml/min/1.73 sqM) Glucose (74-99) mg/dL Calcium (8.4-10.2) mg/dL Total Bilirubin (0.2-1.3) mg/dL AST (14-36) U/L ALT (9-52) U/L Alkaline Phosphatase (38-126) U/L Total Protein (6.3-8.2) g/dL Albumin (3.5-5.0) g/dL Urine Color Urine Appearance (Clear) Urine pH (5.0-8.0) Ur Specific [place] (1.001-1.035) Urine Protein (Negative) Urine Glucose (UA) (Negative) Urine Ketones (Negative) Urine Blood (Negative) Urine Nitrate (Negative) Urine Bilirubin (Negative) Urine Urobilinogen (<2.0) mg/dL Ur Leukocyte Esterase (Negative) Urine HCG, Qual Not Detected (Not Detectd) Salicylates mg/dL Urine Opiates Screen (NotDetected) Ur Oxycodone Screen (NotDetected) Urine Methadone Screen (NotDetected) Ur Propoxyphene Screen (NotDetected) Acetaminophen ug/mL Ur Barbiturates Screen (NotDetected) U Tricyclic Antidepress (NotDetected) Ur Phencyclidine Scrn (NotDetected) Ur Amphetamines Screen (NotDetected) U Methamphetamines Scrn (NotDetected) U Benzodiazepines Scrn (NotDetected) Urine Cocaine Screen (NotDetected) U Marijuana (THC) Screen (NotDetected) Serum Alcohol mg/dL Disposition Clinical Impression: Depression Disposition: HOME SELF-CARE Condition: Stable Instructions: Depression (ED) Additional Instructions: Please use medication as discussed. Please follow up with family doctor if symptoms have not improved over the next two days. Please return to the emergency room if your symptoms increase or worsen or for any other concerns. If you develop any suicidal or homicidal ideation return to the emergency department immediately. Referrals: None,Stated [Primary Care Provider] - 1-2 days Ravi Chacon MD [STAFF PHYSICIAN] - 1-2 days Time of Disposition: 10:34
[2016-07-27 08:35] LABS: ALT 45 U/L (9-52); AST 24 U/L (14-36); Acetaminophen <10.0 ug/mL; Alcohol <10 mg/dL; Alkaline Phosphatase 69 U/L (38-126); Anion Gap 14 mmol/L; Blood Urea Nitrogen 7 mg/dL (7-17); Calcium 10.1 mg/dL (8.4-10.2); Carbon Dioxide 27 mmol/L (22-30); Chloride 101 mmol/L (98-107); Glucose 119 mg/dL (74-99); Non-African American GFR(MDRD) >60 (>60 ml/min/1.73 sqM); Potassium 4.1 mmol/L (3.5-5.1); Salicylate <1.0 mg/dL; Sodium 142 mmol/L (137-145); Total Bilirubin 0.5 mg/dL (0.2-1.3); Total Protein 8.4 g/dL (6.3-8.2)
[2016-07-27] MEDS ORDERED: ACETAMINOPHEN IV (For NPO) 1,000 MG in EMPTY BAG 1 BAG IVPB STA (10:13)
[2016-07-27 10:32] VITALS: BP 130/84; PULSE 120; RESP 16
== END 2016-07-27 10:40 | disposition home or self-care (01) ==
LOC: EC 07:26
DX: F32.9 Major depressive disorder, single episode, unspecified (principal); R11.2 Nausea with vomiting, unspecified; F41.9 Anxiety disorder, unspecified; F17.210 Nicotine dependence, cigarettes, uncomplicated; Z79.3 Long term (current) use of hormonal contraceptives; Z88.6 Allergy status to analgesic agent
CPT/HCPCS: 36415; 80053; 85025; 81003; 81025; 80306; 83520 ×2; 80320; 99284; 96374; 96375; 96372; 96361; J2060; J1630; J2405

== ENCOUNTER 2016-08-17 09:25 | Emergency (ER) | payer OTHER ==
[2016-08-17 09:48] VITALS: TEMP 97.2
--- NOTE | 2016-08-17 10:28 | XR ---
Right ankle HISTORY: Trauma and pain 3 views of the right ankle No comparisons There is soft tissue swelling. Bone mineralization, joint spaces and alignment are maintained IMPRESSION: No fracture or dislocation is evident
--- NOTE | 2016-08-17 10:29 | ED ---
General Adult HPI - General Chief complaint: Extremity Injury, Lower Stated complaint: Tooth/foot pain Time Seen by Provider: 08/17/16 09:52 Source: patient, RN notes reviewed Mode of arrival: ambulatory Limitations: no limitations - History of Present Illness Initial comments: 25-year-old female presents emergency Department with chief complaint of right- sided dental pain, right ankle pain. Patient states she twisted her ankle today. Patient had a prior history of depression. Patient states the dental pain has been going on for several months. Patient denies fever, chills, facial swelling. Patient has a headache or dizziness. Patient denies any neck stiffness. Patient offers no other complaints. - Related Data Home Medications Medication Instructions Recorded Confirmed Benztropine Mesylate [Cogentin] 2 mg PO TID 08/17/16 08/17/16 Buprenorphine HCl/Naloxone HCl 1 film SUBLINGUAL 08/17/16 08/17/16 [Suboxone 8 mg-2 mg Sl Film] TID@0800,1300,2000 Ibuprofen [Motrin] 600 mg PO TID PRN 08/17/16 08/17/16 Mirtazapine [Remeron] 45 mg PO HS 08/17/16 08/17/16 cloNIDine HCL [Catapres] 0.1 mg PO PC-TID 08/17/16 08/17/16 cloNIDine HCL [Catapres] 0.2 mg PO HS 08/17/16 08/17/16 diphenhydrAMINE HCL [Banophen] 50 mg PO HS 08/17/16 08/17/16 Previous Rx's Medication Instructions Recorded Penicillin V Potassium [Pen Vee K] 500 mg PO QID #40 tab 08/17/16 Allergies Allergy/AdvReac Type Severity Reaction Status Date / Time acetaminophen [From Tylenol] AdvReac Vomiting Verified 08/17/16 10:17 ibuprofen [From Motrin] AdvReac Vomiting Verified 08/17/16 10:17 Review of Systems ROS Statement: Those systems with pertinent positive or pertinent negative responses have been documented in the HPI. ROS Other: All systems not noted in ROS Statement are negative. Past Medical History Additional Past Medical History / Comment(s): chronic back and leg pain, h/o childhood leukemia History of Any Multi-Drug Resistant Organisms: None Reported Past Surgical History: Appendectomy Additional Past Surgical History / Comment(s): abdominoplasty Past Psychological History: Anxiety, Bipolar, Depression Smoking Status: Former smoker Past Alcohol Use History: None Reported Additional Past Alcohol Use History / Comment(s): Patient is a smoker 3 packs per day for 3 years and has now cut back to 3 cigarettes per day. She denies any medical marijuana, marijuana, street drug use. She denies any alcohol use. She is single and has 3 children; one daughter and 2 sons with no major medical problems. She lives with her boyfriend and his roommates. Past Drug Use History: None Reported - Past Family History Father Additional Family Medical History / Comment(s): Father is 52 years of age with possible coronary artery disease. Mother Additional Family Medical History / Comment(s): Mother from emphysema at age 48. Brother(s) Additional Family Medical History / Comment(s): Patient has 2 brothers with no major medical problems. Patient does not have any sisters. General Exam General appearance: alert, in no apparent distress Head exam: Present: atraumatic, normocephalic, normal inspection Eye exam: Present: normal appearance, PERRL, EOMI. Absent: scleral icterus, conjunctival injection, periorbital swelling ENT exam: Present: mucous membranes moist, TM's normal bilaterally, normal external ear exam. Absent: normal exam, normal oropharynx (Poor dentition noted , no dental abscess.) Neck exam: Present: normal inspection, full ROM. Absent: tenderness, meningismus, lymphadenopathy Respiratory exam: Present: normal lung sounds bilaterally. Absent: respiratory distress, wheezes, rales, rhonchi, stridor Cardiovascular Exam: Present: regular rate, normal rhythm, normal heart sounds. Absent: systolic murmur, diastolic murmur, rubs, gallop, clicks Extremities exam: Present: other (Right ankle there is tenderness palpation lateral malleolus no obvious deformity no ecchymosis neurovascular intact there is no foot tenderness no tenderness proximal to the right ankle. No laxity negative anterior drawer test.) Neurological exam: Present: alert, oriented X3, CN II-XII intact Course Vital Signs 08/17/16 09:45 Temperature 97.2 F L Pulse Rate 73 Respiratory 20 Rate Blood Pressure 110/67 O2 Sat by Pulse 95 Oximetry Medical Decision Making - Medical Decision Making 5-year-old female presented emergency from for right ankle pain, dental pain. Patient was started on antibiotics for dental infection. There is no obvious deformity or fracture noted to the right ankle. Patient be discharged. Patient is on Suboxone. Disposition Clinical Impression: Right ankle sprain, Pain, dental Disposition: HOME SELF-CARE Condition: Stable Instructions: Ankle Sprain (ED) Additional Instructions: Please follow-up with your dentist as directed.Please return to the Emergency Department if symptoms worsen or any other concerns. Prescriptions: Penicillin V Potassium [Pen Vee K] 500 mg PO QID #40 tab Time of Disposition: 10:29
[2016-08-17 10:38] VITALS: BP 131/68; PULSE 95; RESP 16
== END 2016-08-17 10:38 | disposition home or self-care (01) ==
LOC: EC 09:25
DX: S93.401A Sprain of unspecified ligament of right ankle, initial encounter (principal); K08.89 Other specified disorders of teeth and supporting structures; F41.9 Anxiety disorder, unspecified; F31.9 Bipolar disorder, unspecified; Z87.891 Personal history of nicotine dependence; Z79.899 Other long term (current) drug therapy; Z88.6 Allergy status to analgesic agent; X50.1XXA Overexertion from prolonged static or awkward postures, initial encounter
CPT/HCPCS: 99283

== ENCOUNTER 2022-03-14 10:00 | Inpatient (IN) | payer MEDICAID, OTHER ==
--- NOTE | 2022-03-14 10:31 | ED ---
General Adult HPI - General Stated complaint: Mental Health Time Seen by Provider: 03/14/22 10:00 Source: patient, RN notes reviewed, old records reviewed - History of Present Illness Initial comments: This is a 31-year-old female with past medical history significant for heroin abuse bipolar and schizophrenia. Patient is completely altered and not giving us any significant history. Patient is babbling in stating that she wants God caregiver. Patient also states his people upstairs yelling and screaming and the police indicated to us that no one lives upstairs. Patient is not answering any questions she's just going on and on about how he got keep piling more on her and she is unable to take care of herself and everybody is a liar and people are stealing from her. Patient also thinks that someone upstairs hurting her baby and no one will believe her. - Related Data Home Medications Medication Instructions Recorded Confirmed Benztropine Mesylate [Cogentin] 2 mg PO TID 08/17/16 08/17/16 Buprenorphine HCl/Naloxone HCl 1 film SUBLINGUAL 08/17/16 08/17/16 [Suboxone 8 mg-2 mg Sl Film] TID@0800,1300,2000 Ibuprofen [Motrin] 600 mg PO TID PRN 08/17/16 08/17/16 Mirtazapine [Remeron] 45 mg PO HS 08/17/16 08/17/16 cloNIDine HCL [Catapres] 0.1 mg PO PC-TID 08/17/16 08/17/16 cloNIDine HCL [Catapres] 0.2 mg PO HS 08/17/16 08/17/16 diphenhydrAMINE HCL [Banophen] 50 mg PO HS 08/17/16 08/17/16 Previous Rx's Medication Instructions Recorded Penicillin V Potassium [Pen Vee K] 500 mg PO QID #40 tab 08/17/16 Allergies Allergy/AdvReac Type Severity Reaction Status Date / Time acetaminophen [From Tylenol] AdvReac Vomiting Verified 03/14/22 10:21 ibuprofen [From Motrin] AdvReac Vomiting Verified 03/14/22 10:21 Review of Systems ROS Statement: Those systems with pertinent positive or pertinent negative responses have been documented in the HPI. ROS Other: All systems not noted in ROS Statement are negative. Past Medical History Additional Past Medical History / Comment(s): chronic back and leg pain, h/o childhood leukemia History of Any Multi-Drug Resistant Organisms: None Reported Past Surgical History: Appendectomy Additional Past Surgical History / Comment(s): abdominoplasty Past Psychological History: Anxiety, Bipolar, Depression Past Alcohol Use History: None Reported Past Drug Use History: None Reported - Past Family History Father Additional Family Medical History / Comment(s): Father is 52 years of age with possible coronary artery disease. Mother Additional Family Medical History / Comment(s): Mother from emphysema at a ge 48. Brother(s) Additional Family Medical History / Comment(s): Patient has 2 brothers with no major medical problems. Patient does not have any sisters. General Exam - General Exam Comments Initial Comments: GENERAL: Patient is well-developed and well-nourished. Patient is nontoxic and well-hydr ated and is is very upset and yelling but not making any sense. ENT: Neck is soft and supple. No significant lymphadenopathy is noted. Oropharynx is clear. Moist mucous membranes. Neck has full range of motion without eliciting any pain. EYES: The sclera were anicteric and conjunctiva were pink and moist. Extraocular movements were intact and pupils were equal round and reactive to light. Eyelids were unremarkable. PULMONARY: Unlabored respirations. Good breath sounds bilaterally. No audible rales rhonchi or wheezing was noted. CARDIOVASCULAR: There is a regular rate and rhythm without any murmurs gallops or rubs. ABDOMEN: Soft and nontender with normal bowel sounds. SKIN: Skin is clear with no lesions or rashes and otherwise unremarkable. NEUROLOGIC: Patient is alert and oriented to self I can't not get her to answer any other questions. Cranial nerves II through XII are grossly intact. Motor and sensory are also intact. Normal speech, volume and content. Symmetrical smile. MUSCULOSKELETAL: Normal extremities with adequate strength and full range of motion. LYMPHATICS: No significant lymphadenopathy is noted PSYCHIATRIC: Patient is babbling and not making any sense and appears to be delusional according to the police she is claiming people or upstairs that are not upstairs apartment is empty. Patient also keeps talking about God now she wants to forgive her but he keeps polymorphs off on her. Course Vital Signs 09/25/22 09/25/22 10:21 12:34 Temperature 98 F 98.5 F Pulse Rate 95 Respiratory 16 20 Rate Blood Pressure 118/74 135/86 O2 Sat by Pulse 99 98 Oximetry Medical Decision Making - Medical Decision Making Patient was petition that I filled out a clinical certification. Patient will be admitted. - Lab Data Lab Results 03/14/22 Range/Units 10:15 Urine Opiates Screen Not Detected (NotDetected) Ur Oxycodone Screen Not Detected (NotDetected) Urine Methadone Screen Detected H (NotDetected) Ur Propoxyphene Screen Not Detected (NotDetected) Ur Barbiturates Screen Not Detected (NotDetected) U Tricyclic Antidepress Not Detected (NotDetected) Ur Phencyclidine Scrn Not Detected (NotDetected) Ur Amphetamines Screen Not Detected (NotDetected) U Methamphetamines Scrn Not Detected (NotDetected) U Benzodiazepines Scrn Not Detected (NotDetected) Urine Cocaine Screen Not Detected (NotDetected) U Marijuana (THC) Screen Not Detected (NotDetected) Disposition Clinical Impression: Acute psychosis Disposition: ADMITTED IP TO THIS HOSP Referrals: None,Stated [Primary Care Provider] - 1-2 days Time of Disposition: 12:59
[2022-03-14 10:49] LABS: Amphetamine Screen,Urine Not Detected (NotDetected); Barbiturate Screen,Urine Not Detected (NotDetected); Benzodiazepines Screen,Urine Not Detected (NotDetected); Cocaine Screen,Urine Not Detected (NotDetected); Methadone Screen, Urine Detected (NotDetected); Opiate Screen,Urine Not Detected (NotDetected); Oxycodone Screen, Urine Not Detected (NotDetected); Phencyclidine Screen,Urine Not Detected (NotDetected); Tricyclic Antidepressant,Urine Not Detected (NotDetected); Urn Cannabinoid Scrn Not Detected (NotDetected)
[2022-03-14] MEDS ORDERED: LORazepam 2 MG/ML INJ IM STA (13:03)
[2022-03-14] MEDS ORDERED: ZIPRASIDONE 20 MG VIAL IM STA (13:03)
[2022-03-14] MEDS ORDERED: MAG HYDROX/AL HYDROX/SIMETH 30 ML CUP PO PRN (14:48)
[2022-03-14] MEDS ORDERED: HALOPERIDOL LACTATE 5 MG/ML 1 ML VIAL IM PRN (14:48)
[2022-03-14] MEDS ORDERED: MAGNESIUM HYDROXIDE 2,400 MG/10 ML CUP PO PRN (14:48)
[2022-03-14] MEDS ORDERED: LORazepam 2 MG/ML INJ IM PRN (15:04)
--- NOTE | 2022-03-14 18:08 | P.HPIM ---
History of Present Illness H&P Date: 03/14/22 Chief Complaint: Psychosis 51 years old lady with past medical history significant for healing and use, bipolar disorder and schizophrenia. The patient was admitted for psychiatric unit due to psychosis. Patient is a poor historian, she Talking about her having tooth abscess and she was saying that she has right ear pain and requesting antibiotics as she was concerned that she might have osteomyelitis. She stated that she thinks he might have osteomyelitis and her ribs as well. Most of the history was obtained from EMR. Review of Systems A 14 point review systems was assessed patient was only positive for those described in HPI Past Medical History Past Medical History: No Reported History Additional Past Medical History / Comment(s): chronic back and leg pain, h/o childhood leukemia History of Any Multi-Drug Resistant Organisms: None Reported Past Surgical History: Appendectomy Additional Past Surgical History / Comment(s): abdominoplasty Past Psychological History: Anxiety, Bipolar, Depression Past Alcohol Use History: None Reported Past Drug Use History: None Reported - Past Family History Father Additional Family Medical History / Comment(s): Father is 52 years of age with possible coronary artery disease. Mother Additional Family Medical History / Comment(s): Mother from emphysema at age 48. Brother(s) Additional Family Medical History / Comment(s): Patient has 2 brothers with no major medical problems. Patient does not have any sisters. Medications and Allergies Home Medications Medication Instructions Recorded Confirmed Type hydrOXYzine HCL [Atarax] 25 mg PO TID PRN 03/14/22 03/14/22 History Allergies Allergy/AdvReac Type Severity Reaction Status Date / Time acetaminophen [From Tylenol] AdvReac Vomiting Verified 03/14/22 10:21 ibuprofen [From Motrin] AdvReac Vomiting Verified 03/14/22 10:21 Physical Exam Vitals: Vital Signs Temp Pulse Pulse Resp BP BP Pulse Ox 03/14/22 16:11 97.5 F L 96 18 136/84 100 03/14/22 13:19 110 H 20 98 03/14/22 12:34 98.5 F 95 20 135/86 98 03/14/22 10:21 98 F 16 118/74 99 Intake and Output 03/14/22 03/14/22 03/14/22 06:59 14:59 22:59 Other: Weight 90.718 kg 91.172 kg General: [non toxic], [mild distress], [appears at stated age] Derm: [warm], [dry] Head: [atraumatic], [normocephalic], [symmetric] Eyes: [EOMI], [no lid lag], [anicteric sclera] Mouth: [no lip lesion], [mucus membranes moist] Cardiovascular: [S1S2 reg], [no murmur], [positive posterior tibial pulse bilateral], Lungs: [CTA bilateral], [no rhonchi, no rales] , [no accessory muscle use] Abdominal: [soft], [ nontender to palpation], [no guarding], [no appreciable organomegaly] Ext: [no gross muscle atrophy], [no edema], [no contractures] Neuro: [ CN II-XI grossly intact], [no focal neuro deficits] Psych: [Alert not oriented, delusional Results Labs: Abnormal Lab Results - Last 24 Hours (Table) 03/14/22 Range/Units 10:15 Urine Methadone Screen Detected H (NotDetected) Assessment and Plan Assessment: Acute psychosis History of bipolar disorder History of schizophrenia Right ear pain Plan -Given the patient's ALLERGY to Tylenol and ibuprofen, with no evidence of acute infection, would give her lidocaine cream to apply on her right jaw -Would like to order a hemoglobin A1c, lipid panel and TSH -Rest of management per psychiatry team
[2022-03-14] MEDS ORDERED: LIDOCAINE 4% CREAM 5 GM TUBE TOPICAL ONE (18:15)
[2022-03-15] MEDS: haloperidoL 5 MG TAB PO PRN ×2 (09:35→23:39)
[2022-03-15] MEDS: NICOTINE 14MG/24HR PATCH TRANSDERM SCH (09:35)
[2022-03-15] MEDS: LORazepam 1 MG TAB PO PRN ×2 (09:35→17:43)
--- NOTE | 2022-03-15 11:50 | P.HP ---
Psychiatric H&P - . H&P Date: 03/15/22 History & Physical: Allergies Allergy/AdvReac Type Severity Reaction Status Date / Time acetaminophen From Tylenol AdvReac Vomiting Verified 03/14/22 10:21 ibuprofen From Motrin AdvReac Vomiting Verified 03/14/22 10:21 Vital Signs Temp 97.5 F L 03/14/22 16:11 Pulse 96 03/14/22 16:11 Resp 18 03/14/22 16:11 BP 136/84 03/14/22 16:11 Pulse Ox 100 03/14/22 16:11 FiO2 Intake & Output 03/14/22 03/15/22 03/15/22 18:59 06:59 18:59 Weight 91.172 kg Laboratory Last Values Urine Opiates Screen Not Detected (NotDetected) 03/14/22 10:15 Ur Oxycodone Screen Not Detected (NotDetected) 03/14/22 10:15 Urine Methadone Screen Detected (NotDetected) H 03/14/22 10:15 Ur Propoxyphene Screen Not Detected (NotDetected) 03/14/22 10:15 Ur Barbiturates Screen Not Detected (NotDetected) 03/14/22 10:15 U Tricyclic Antidepress Not Detected (NotDetected) 03/14/22 10:15 Ur Phencyclidine Scrn Not Detected (NotDetected) 03/14/22 10:15 Ur Amphetamines Screen Not Detected (NotDetected) 03/14/22 10:15 U Methamphetamines Scrn Not Detected (NotDetected) 03/14/22 10:15 U Benzodiazepines Scrn Not Detected (NotDetected) 03/14/22 10:15 Urine Cocaine Screen Not Detected (NotDetected) 03/14/22 10:15 U Marijuana (THC) Screen Not Detected (NotDetected) 03/14/22 10:15 Coronavirus (PCR) Not Detected (Not Detectd) 03/14/22 12:58 03/15/22 11:28 IDENTIFYING DATA: Patient is a 31-year-old female, currently lives with her boyfriend, has 3 kids and collects Social Security disability HPI: Patient presented to the hospital yesterday on a petition by the police who stated that patient "has been calling the PDD about someone screaming at her. Laura also talks about demons talking to her and making person. Laura also stated she hasn't slept in weeks." Patient apparently was making odd and bizarre comments in the ER and endorsing paranoia and delusional. Patient's UDS was positive for methadone. Patient was seen today in her room and agreeable to speak to account underwriter in the office. She appeared to have poor hygiene and grooming and appeared to be sweating. She was irritable and demanding. She claims that she is having a "tooth infection" and states that she has an abscess in her mouth. She spoke about having "no energy left" and sad and frustrated with being in the hospital. She has very poor insight and judgment. She states that she called the police" they took me away". She was complaining about her neighbors acting violently and saying things about her. She was illogical and rambling during the conversation. She claims that she is taking her medications however only mentioned Depakote and Vistaril. She has very poor understanding of her medications and did not want to be started on antipsychotic. She was focused on obtaining her methadone and claims that she is going through withdrawals at this time. She claims that her mood is depressed and "upset". Endorsing significant anxiety at this time. Patient denies any suicidal or homicidal ideations intent or plan. At this time patient denies any auditory or visual hallucinations. Patient denies any flight of ideas racing thoughts and increased in goal directed behavior. Patient admits to using no recreational drugs or cigarettes PAST PSYCHIATRIC HISTORY: Patient states that she has a history of schizoaffective disorder. Patient claims that she was previously on Depakote and Vistaril and also states that she is taking methadone through [facility] in [place]. She was last admitted to the psychiatric unit in 2016 and was on haloperidol Depakote Lexapro Remeron Artane and Klonopin at that time.Patient denies any psychiatric outpatient follow-up. Patient denies any history of suicide attempts in the past. Past Medical History: No Reported History Additional Past Medical History / Comment(s): chronic back and leg pain, h/o childhood leukemia ALLERGIES: as per EMR CHEMICAL DEPENDENCY HISTORY: as per HPI FAMILY PSYCHIATRIC/SUBSTANCE USE HISTORY: Claims that her mother has schizophrenia SOCIAL HISTORY: Patient was born and raised in [facility]. She states that she completed high school. She claims that she did go to retirement once in the past for "disorderly conduct". She has 3 kids. She currently lives with her boyfriend in a house. Collects Social Security disability. MENTAL STATUS EXAM: General Appearance: Patient appears to be overweight, disheveled appearance, stated age is alert, irritable and argumentative. Patient appears to have poor hygiene and grooming. Behavior: Patient is seated without any agitated behavior. Argumentative. Irritable Speech: Patient's speech is fluent and nonpressured. Demanding. Loud at times. Mood/Affect: Patient reports their mood is depressed and anxious, affect is congruent. Suicidality/Homicidality: Patient denies having any homicidal ideation intent or plan. Denies any suicidal ideations intent or plan Perceptions: Patient denies any visual hallucinations and denies any auditory hallucinations Though content/process: Paranoia, delusional. Rambling at times. Illogical. Memory and concentration: AOX3, grossly intact for the purposes of this session. Can spell "WORLD" backwards Judgment and insight: poor STRENGTHS/WEAKNESSES: strength is that patient is resilient. Weakness is that patient has poor judgment and is impulsive and has poor insight INTELLECT: average IMPRESSIONS: Schizoaffective disorder Anxiety disorder unspecified PLAN: -Patient is admitted under involuntary status to [facility]HU for stabilization of psychiatric symptoms and safety. Patient has not signed adult voluntary form and medication consent and is placed in patient's chart. A second certification was completed and along with petition will be filed for court. -Medications : Will start patient on paliperidone by mouth 3 mg daily at bedtime for mood stabilization/psychosis, Depakote 500 mg twice a day for mood stabilization, trazodone 50 mg daily at bedtime when necessary for sleep. -Ativan, Vistaril and Haldol PRN for agitation/aggression -Patient was counselled on substance abuse and desired to cut back on use -Patient was informed of the risks, benefits and side effects of the medication and patient verbally consented to taking the medications. Patient signed med consent form and was placed in chart. -Internal Medicine consult to perform medical evaluation and physical. -NRT - not needed as patient does not smoke -SW on board for discharge planning. Encourage patient to participate in groups to work on coping skills. Will await deferral and court date. 03/15/22 11:43
[2022-03-15] MEDS: CEPHALEXIN 500 MG CAP PO SCH ×3 (12:17→21:00)
[2022-03-15] MEDS: DIVALPROEX ER 500 MG TAB.ER.24H PO SCH ×2 (12:18→20:46)
[2022-03-15] MEDS: METHADONE 10 MG TAB PO SCH ×2 (14:07→20:46)
[2022-03-15] MEDS: IBUPROFEN 200 MG TAB PO PRN (16:16)
[2022-03-15] MEDS ORDERED: PALIPERIDONE 3 MG TAB.ER.24 PO SCH (21:00)
[2022-03-15] MEDS: hydrOXYzine pamoate 25 MG CAP PO PRN (23:39)
[2022-03-15] MEDS: traZODone HCL 50 MG TAB PO PRN (23:39)
[2022-03-16] MEDS: METHADONE 10 MG TAB PO SCH (08:47)
[2022-03-16] MEDS: CEPHALEXIN 500 MG CAP PO SCH ×3 (08:49→20:45)
[2022-03-16] MEDS: DIVALPROEX ER 500 MG TAB.ER.24H PO SCH ×2 (08:49→20:45)
[2022-03-16] MEDS: NICOTINE 14MG/24HR PATCH TRANSDERM SCH (10:18)
--- NOTE | 2022-03-16 10:21 | P.PN ---
Progress Note - Text Progress Note Date: 03/16/22 Interval History: Patient was seen wandering the hallways and was directable and agreeable to sp karena with database report writer in the office. Patient continues to be somewhat irritable today with database report writer and complaining about her medications. She states that she is supposed to be on a higher dose of methadone and was very upset with the database report writer today. Methods Examiner attempted to explain to patient the reason for cutting her dose down due to the inconsistencies in her story and also her dosing. Patient claims that she wants to take the 70 mg of methadone all at once in the morning. She claims that she did not sleep well last night however states that she feels a bit tired this morning and attributes it to the Depakote. We spoke about changing it to nighttime dosing. She continues to ramble and is illogical at times and also endorsing paranoia, less preoccupied with delusions today. At this time patient denies any suicidal or homical ideations, intent or plan. Patient denies any auditory, visual hallucinations and denies any paranoia or delusions. Patient denies any side effects from the medications and has been compliant with meds. She was mildly argumentative with database report writer however was more directable near the end of the interview. Mental Status Exam: General Appearance: Patient appears to be overweight, wearing glasses, stated age is alert, somewhat directable, and somewhat argumentative today. Behavior: Patient is calmly seated without any agitated behavior. Continues to be irritable, improving mildly Speech: Patient's speech is fluent and nonpressured. Rambles at times. Mood/Affect: Mood is improving mildly, affect is congruent and constricted. Suicidality/Homicidality: Patient denies having any suicidal or homicidal ideation intent or plan. Perceptions: Patient denies any visual hallucinations and denies any auditory hallucinations Though content/process: There is no evidence of any delusional thought content and thought process is linear and goal-directed. Rambles at times. Focused on her medications and methadone. Memory and concentration: AOX3, grossly intact for the purposes of this session Judgment and insight: Poor, Improving mildly Assessment Schizoaffective disorder Anxiety disorder unspecified Plan: -Patient continues to meet criteria for inpatient psychiatric admission for symptom stabilization and safety. Patient has not signed adult voluntary form and medication consent and was placed in patient's chart. -Medications: Increased paliperidone by mouth 6 mg daily at bedtime for mood stabilization/psychosis. Change Depakote to 750 mg qhsfor mood stabilization, trazodone 50 mg daily at bedtime when necessary for sleep, -changed methadone dosing to 70 mg total daily for today and increase to 75 mg tomorrow. -When necessary Ativan and Haldol for agitation/aggression. -NRT - not needed as patient does not smoke -SW on board for discharge planning. Encouraged the patient to participate in milieu. Currently awaiting deferral with patent attorney and court date.
[2022-03-16] MEDS ORDERED: METHADONE 10 MG TAB PO ONE (11:00)
[2022-03-16] MEDS: IBUPROFEN 200 MG TAB PO PRN (13:51)
[2022-03-16 16:04] VITALS: RESP 16
[2022-03-16 19:12] LABS: Basophils % (A) 0 %; Eosinophils # (A) 0.2 k/uL (0-0.7); Eosinophils % (A) 3 %; HCT 36.5 % (34.0-46.0); HGB 12.3 gm/dL (11.4-16.0); Lymphocytes # (A) 3.6 k/uL (1.0-4.8); Lymphocytes % (A) 49 %; MCH 29.9 pg (25.0-35.0); MCHC 33.7 g/dL (31.0-37.0); MCV 88.7 fL (80.0-100.0); Mean Platelet Volume 7.7; Monocytes # (A) 0.4 k/uL (0-1.0); Monocytes % (A) 5 %; Neutrophils % (A) 41 %; Platelet Count 189 k/uL (150-450); RBC 4.12 m/uL (3.80-5.40); RDW 12.4 % (11.5-15.5); WBC 7.4 k/uL (3.8-10.6)
[2022-03-16 19:15] LABS: ALT 27 U/L (4-34); AST 36 U/L (14-36); African American GFR (CKD) >90 (>60 ml/min/1.73 sqM); Albumin 4.8 g/dL (3.5-5.0); Alkaline Phosphatase 55 U/L (38-126); Anion Gap 16 mmol/L; Blood Urea Nitrogen 18 mg/dL (7-17); Calcium 9.8 mg/dL (8.4-10.2); Carbon Dioxide 22 mmol/L (22-30); Chloride 102 mmol/L (98-107); Glucose 92 mg/dL (74-99); Non-African American GFR(CKD) >90 (>60 ml/min/1.73 sqM); Sodium 140 mmol/L (137-145); Total Bilirubin 0.4 mg/dL (0.2-1.3); Total Protein 7.3 g/dL (6.3-8.2)
[2022-03-16 19:56] LABS: Potassium 4.8 mmol/L (3.5-5.1)
[2022-03-16] MEDS: PALIPERIDONE 6 MG TAB.ER.24 PO SCH (20:45)
[2022-03-17] MEDS: hydrOXYzine pamoate 25 MG CAP PO PRN ×2 (01:32→10:09)
[2022-03-17] MEDS: haloperidoL 5 MG TAB PO PRN (03:07)
[2022-03-17] MEDS: NICOTINE 14MG/24HR PATCH TRANSDERM SCH (08:43)
[2022-03-17] MEDS: CEPHALEXIN 500 MG CAP PO SCH ×3 (08:43→20:18)
[2022-03-17] MEDS ORDERED: METHADONE 10 MG TAB PO SCH ×2 (09:00)
[2022-03-17 09:32] LABS: LDL Cholesterol,Calculated 58.1 mg/dL (0.0-131.0)
--- NOTE | 2022-03-17 11:36 | P.PN ---
Progress Note - Text Progress Note Date: 03/17/22 Interval History: Patient was seen wandering the hallways and was directable and agreeable to sp eak with tech writer in the office. Patient claims that she feels a bit better today. She states that yesterday she was feeling "overmedicated" however does not feel this today. She was fairly conflicted about her sleep and states that "I can sleep but it feels like I'm not". She did state that there have been several distractions on the unit from other patients. She was fairly focused on discharge and minimizing why she came to the hospital. She appears to be more directable during conversation less irritable and more cooperative with tech writer. She states that she is okay with having her methadone at a reduced amount and claims that "I eventually want to get off it anyways". She claims that she has been going to some groups and attending to participate. States that her mood and anxiety of an improving. less preoccupied with delusions today. At this time patient denies any suicidal or homical ideations, intent or plan. Patient denies any auditory, visual hallucinations and denies any paranoia. Patient denies any side effects from the medications and has been compliant with meds. Mental Status Exam: General Appearance: Patient appears to be overweight, wearing glasses, stated ag e is alert, somewhat directable, and more polite today. Behavior: Patient is calmly seated without any agitated behavior. less irritable, improving mildly Speech: Patient's speech is fluent and nonpressured. Rambles at times, improving mildly Mood/Affect: Mood is improving mildly, affect is congruent and constricted. Suicidality/Homicidality: Patient denies having any suicidal or homicidal olive ation intent or plan. Perceptions: Patient denies any visual hallucinations and denies any auditory hallucinations Though content/process: There is no evidence of any delusional thought content and thought process is linear and goal-directed. Rambles at times, improving mildly Memory and concentration: AOX3, grossly intact for the purposes of this session Judgment and insight: Poor, Improving mildly Assessment Schizoaffective disorder Anxiety disorder unspecified Plan: -Patient continues to meet criteria for inpatient psychiatric admission for symptom stabilization and safety. Patient has not signed adult voluntary form and medication consent and was placed in patient's chart. -Medications: paliperidone by mouth 6 mg daily at bedtime for mood stabilization/psychosis. Depakote 1000 mg qhs for mood stabilization, trazodone 50 mg daily at bedtime when necessary for sleep, -methadone 75 mg total daily for tomorrow -When necessary Ativan and Haldol for agitation/aggression. -NRT - not needed as patient does not smoke -SW on board for discharge planning. Encouraged the patient to participate in milieu. patient deferred with her roof bolter, likely discharge tomorrow.
[2022-03-17] MEDS: IBUPROFEN 200 MG TAB PO PRN (14:26)
[2022-03-17] MEDS: PALIPERIDONE 6 MG TAB.ER.24 PO SCH (20:18)
[2022-03-17] MEDS: DIVALPROEX ER 500 MG TAB.ER.24H PO SCH (20:18)
[2022-03-17] MEDS: traZODone HCL 50 MG TAB PO PRN (22:00)
[2022-03-18] MEDS: IBUPROFEN 200 MG TAB PO PRN (04:51)
[2022-03-18] MEDS: hydrOXYzine pamoate 25 MG CAP PO PRN (04:51)
[2022-03-18 06:35] VITALS: BP 115/74; PULSE 82; TEMP 96.8
[2022-03-18] MEDS: NICOTINE 14MG/24HR PATCH TRANSDERM SCH (08:21)
[2022-03-18] MEDS: CEPHALEXIN 500 MG CAP PO SCH (08:21)
[2022-03-18] MEDS ORDERED: traZODone HCL 100 MG TAB PO PRN (08:54)
[2022-03-18] MEDS ORDERED: METHADONE 10 MG TAB PO SCH (09:00)
[2022-03-18] MEDS ORDERED: METHADONE 5 MG TAB PO SCH ×2 (09:00)
--- NOTE | 2022-03-18 09:15 | P.DS ---
Providers Date of admission: 03/14/22 14:45 Expected date of discharge: 03/18/22 Attending physician: Damion Richardson MD Consults: 03/14/22 14:48 Consult Physician Routine Consulting Provider: Paco Morley Consult Reason/Comments: medical management Do you want consulting provider notified?: Yes Primary care physician: Stated None - Discharge Diagnosis(es) (1) Schizoaffective disorder Current Visit: Yes Status: Acute Priority: High (2) Anxiety disorder Current Visit: Yes Status: Acute Priority: Medium (3) Opioid use disorder Current Visit: Yes Status: Acute Priority: Low Hospital Course: Admission HPI: Admission note was completed by mortgage or loan underwriter "Patient is a 31-year-old female, currently lives with her boyfriend, has 3 kids and collects Social Security disability. Patient presented to the hospital yesterday on a petition by the police who stated that patient "has been calling the PDD about someone screaming at her. Laura also talks about demons talking to her and making person. Laura also stated she hasn't slept in weeks." Patient apparently was making odd and bizarre comments in the ER and endorsing paranoia and delusional. Patient's UDS was positive for methadone. Patient was seen today in her room and agreeable to speak to mortgage or loan underwriter in the office. She appeared to have poor hygiene and grooming and appeared to be sweating. She was irritable and demanding. She claims that she is having a "tooth infection" and states that she has an abscess in her mouth. She spoke about having "no energy left" and sad and frustrated with being in the hospital. She has very poor insight and judgment. She states that she called the police" they took me away". She was complaining about her neighbors acting violently and saying things about her. She was illogical and rambling during the conversation. She claims that she is taking her medications however only mentioned Depakote and Vistaril. She has very poor understanding of her medications and did not want to be started on antipsychotic. She was focused on obtaining her methadone and claims that she is going through withdrawals at this time. She claims that her mood is depressed and "upset". Endorsing significant anxiety at this time. Patient denies any suicidal or homicidal ideations intent or plan. At this time patient denies any auditory or visual hallucinations. Patient denies any flight of ideas racing thoughts and increased in goal directed behavior. Patient admits to using no recreational drugs or cigarettes" Hospital course: Upon admission to the unit patient was admitted involuntarily on a petition and certificate and a second certificate was completed and faxed with the courts. Patient ended up signing a deferral with the claim attorney and agreeing to treatment. Patient got along well with other patients on the unit and followed unit protocol. Patient was compliant with the medications and denied any side effects throughout hospital course. Patient was started on Depakote however change dose to 1000 mg daily at bedtime for mood stabilization, paliperidone by mouth increased to a dose of 6 mg daily at bedtime for mood stabilization/psychosis, trazodone increased to 100 mg daily at bedtime when necessary for sleep. It was confirmed from [facility] that patient was on 135 mg of methadone with take homes at their program however as patient gave inconsistent story of what her dosing was in when she last took her methadone, the decision was made to decrease patient down to 75 mg daily of methadone. EKG was reviewed. Patient can continue through [facility] at 75 mg. Patient spoke of her stressors and engaged in therapy both group and individual. Patient was also seen by medical team for history and physical exam. Throughout the course of the hospitalization patient gradually improved with regards to mood and anxiety, psychosis, sleep and returned back to their baseline level of functioning. On the day of discharge patient denied any suicidal or homicidal ideations intent or plan denied any auditory or visual hallucinations. Patient endorsed wanting to live for her health and her family. The patient denied any access to guns or weapons. Patient denied any paranoia and did not endorse any delusions. Patient does have a significant history of substance abuse and was counseled on abstaining from all substances including alcohol and marijuana. Patient will continue going to [facility] for substance use treatment. Patient was also counse led on the medications and need for regular compliance and was encouraged to follow-up with their outpatient appointment for mental health and also for primary care. Prior to discharge a family meeting will be arranged by social work supervisor to answer any questions and ensure safety upon discharge. Mental status exam: General Appearance: Patient appears to be overweight, wearing glasses, stated age is alert, pleasant, and cooperative. Patient is in no acute distress and has improved hygiene and grooming Behavior: Patient is calmly seated without any agitated behavior. Speech: Patient's speech is fluent and nonpressured. Mood/Affect: Patient reports their mood is "better", affect is congruent and constricted Suicidality/Homicidality: Patient denies having any suicidal or homicidal ideation intent or plan. Perceptions: Patient denies any auditory or visual hallucinations. Though content/process: There is no evidence of any delusional thought content and thought process is linear and goal-directed. Memory and concentration: AOX3, grossly intact for the purposes of this session. Can spell "WORLD" backwards correctly. Judgment and insight: improved with guarded prognosis Impression: Schizoaffective disorder Anxiety disorder unspecified Opioid use disorder, currently on agonist therapy Plan: -Continue with discharge today as patient has improved and stabilized psychiatrically and is not currently an imminent threat to herself and/or others. Patient will remain at chronically elevated risk for harm to self and/or others due to her psychiatric condition. -Continue medications: Paliperidone by mouth 6 mg daily at bedtime for mood stabilization/psychosis, Depakote 1000 mg daily at bedtime for mood stabilization, trazodone 100 mg daily at bedtime when necessary for sleep, can continue with methadone 75 mg daily for opioid replacement through [facility]. will inform nurse or SW to contact [facility] today to relay this information of reduced dose. Spoke with patient about this reduced dose and she claims that she will make contact with [facility] and return her methadone take home to them have it lowered/adjusted. -Patient was counseled on the need for medication compliance and appropriate follow-up at mental health and also primary care for medical issues. Patient verbalized understanding and agreed. -Social work to arrange for and conduct family meeting to ensure safety upon discharge and answer any questions/concerns. Social work also to arrange for patients follow up appointments with [facility] for psychiatric care along with follow up with primary care provider. -Patient counseled on abstaining from recreational drugs and marijuana and alcohol. Was informed/educated on the adverse effects on their physical and mental health. Patient verbally agreed and understood. -Patient was instructed to return to the hospital or seek immediate medical care if their psychiatric or medical symptoms do worsen or reoccur. Allergies Allergy/AdvReac Type Severity Reaction Status Date / Time acetaminophen [From Tylenol] AdvReac Vomiting Verified 03/17/22 08:50 ibuprofen [From Motrin] AdvReac Vomiting Verified 03/17/22 08:51 Laboratory Results WBC 7.4 k/uL (3.8-10.6) 03/16/22 18:55 RBC 4.12 m/uL (3.80-5.40) 03/16/22 18:55 Hgb 12.3 gm/dL (11.4-16.0) 03/16/22 18:55 Hct 36.5 % (34.0-46.0) 03/16/22 18:55 MCV 88.7 fL (80.0-100.0) 03/16/22 18:55 MCH 29.9 pg (25.0-35.0) 03/16/22 18:55 MCHC 33.7 g/dL (31.0-37.0) 03/16/22 18:55 RDW 12.4 % (11.5-15.5) 03/16/22 18:55 Plt Count 189 k/uL (150-450) 03/16/22 18:55 MPV 7.7 03/16/22 18:55 Neutrophils % 41 % 03/16/22 18:55 Lymphocytes % 49 % 03/16/22 18:55 Monocytes % 5 % 03/16/22 18:55 Eosinophils % 3 % 03/16/22 18:55 Basophils % 0 % 03/16/22 18:55 Neutrophils # 3.0 k/uL (1.3-7.7) 03/16/22 18:55 Lymphocytes # 3.6 k/uL (1.0-4.8) 03/16/22 18:55 Monocytes # 0.4 k/uL (0-1.0) 03/16/22 18:55 Eosinophils # 0.2 k/uL (0-0.7) 03/16/22 18:55 Basophils # 0.0 k/uL (0-0.2) 03/16/22 18:55 Sodium 140 mmol/L (137-145) 03/16/22 18:55 Potassium 4.8 mmol/L (3.5-5.1) 03/16/22 18:55 Chloride 102 mmol/L (98-107) 03/16/22 18:55 Carbon Dioxide 22 mmol/L (22-30) 03/16/22 18:55 Anion Gap 16 mmol/L 03/16/22 18:55 BUN 18 mg/dL (7-17) H 03/16/22 18:55 Creatinine 0.59 mg/dL (0.52-1.04) 03/16/22 18:55 Est GFR (CKD-EPI)AfAm >90 (>60 ml/min/1.73 sqM) 03/16/22 18:55 Est GFR (CKD-EPI)NonAf >90 (>60 ml/min/1.73 sqM) 03/16/22 18:55 Glucose 92 mg/dL (74-99) 03/16/22 18:[address] Glu mg/dL 130 03/16/22 18:55 Hemoglobin A1c 6.2 % (0.0-6.0) H 03/16/22 18:55 Calcium 9.8 mg/dL (8.4-10.2) 03/16/22 18:55 Total Bilirubin 0.4 mg/dL (0.2-1.3) 03/16/22 18:55 AST 36 U/L (14-36) 03/16/22 18:55 ALT 27 U/L (4-34) 03/16/22 18:55 Alkaline Phosphatase 55 U/L (38-126) 03/16/22 18:55 Total Protein 7.3 g/dL (6.3-8.2) 03/16/22 18:55 Albumin 4.8 g/dL (3.5-5.0) 03/16/22 18:55 Triglycerides 169.00 mg/dL (0.00-149.00) H 03/16/22 18:55 Cholesterol 126.00 mg/dL (0.00-200.00) 03/16/22 18:55 LDL Cholesterol, Calc 58.1 mg/dL (0.0-131.0) 03/16/22 18:55 VLDL Cholesterol, Calc 33.80 mg/dL (5.00-40.00) 03/16/22 18:55 HDL Cholesterol 34.10 mg/dL (40.00-60.00) L 03/16/22 18:55 Cholesterol/HDL Ratio 3.70 Ratio 03/16/22 18:55 TSH 2.880 mIU/L (0.465-4.680) 03/16/22 18:55 Urine Opiates Screen Not Detected (NotDetected) 03/14/22 10:15 Ur Oxycodone Screen Not Detected (NotDetected) 03/14/22 10:15 Urine Methadone Screen Detected (NotDetected) H 03/14/22 10:15 Ur Propoxyphene Screen Not Detected (NotDetected) 03/14/22 10:15 Ur Barbiturates Screen Not Detected (NotDetected) 03/14/22 10:15 U Tricyclic Antidepress Not Detected (NotDetected) 03/14/22 10:15 Ur Phencyclidine Scrn Not Detected (NotDetected) 03/14/22 10:15 Ur Amphetamines Screen Not Detected (NotDetected) 03/14/22 10:15 U Methamphetamines Scrn Not Detected (NotDetected) 03/14/22 10:15 U Benzodiazepines Scrn Not Detected (NotDetected) 03/14/22 10:15 Urine Cocaine Screen Not Detected (NotDetected) 03/14/22 10:15 U Marijuana (THC) Screen Not Detected (NotDetected) 03/14/22 10:15 Coronavirus (PCR) Not Detected (Not Detectd) 03/14/22 12:58 Vital Signs Temp 96.8 F L 03/18/22 06:34 Pulse 82 03/18/22 06:34 Resp 16 03/18/22 06:34 BP 115/74 03/18/22 06:34 Pulse Ox 99 03/18/22 06:34 FiO2 Patient Condition at Discharge: Stable Plan - Discharge Summary New Discharge Prescriptions: New Ibuprofen [Advil] 400 mg PO Q6HR PRN 30 Days tab PRN Reason: Pain Divalproex ER [Depakote ER] 1,000 mg PO HS 30 Days tab Nicotine 14Mg/24Hr Patch [Habitrol] 1 patch TRANSDERM DAILY 14 Days patch Paliperidone [Invega] 6 mg PO HS 30 Days tab hydrOXYzine pamoate [Vistaril] 50 mg PO BID PRN 30 Days cap PRN Reason: Anxiety Methadone [Dolophine] 70 mg PO DAILY #0 tab Methadone [Dolophine] 5 mg PO DAILY #0 tab Cephalexin [Keflex] 500 mg PO TID 5 Days cap traZODone HCL 100 mg PO HS PRN #30 tablet PRN Reason: Insomnia Discontinued hydrOXYzine HCL [Atarax] 25 mg PO TID PRN PRN Reason: Anxiety Methadone HCl 135 mg PO DAILY Discharge Medication List Cephalexin [Keflex] 500 mg PO TID 5 Days cap 03/18/22 [Rx] Divalproex ER [Depakote ER] 1,000 mg PO HS 30 Days tab 03/18/22 [Rx] Ibuprofen [Advil] 400 mg PO Q6HR PRN 30 Days tab 03/18/22 [Rx] Methadone [Dolophine] 5 mg PO DAILY #0 tab 03/18/22 [Rx] Methadone [Dolophine] 70 mg PO DAILY #0 tab 03/18/22 [Rx] Nicotine 14Mg/24Hr Patch [Habitrol] 1 patch TRANSDERM DAILY 14 Days patch 03/18/22 [Rx] Paliperidone [Invega] 6 mg PO HS 30 Days tab 03/18/22 [Rx] hydrOXYzine pamoate [Vistaril] 50 mg PO BID PRN 30 Days cap 03/18/22 [Rx] traZODone HCL 100 mg PO HS PRN #30 tablet 03/18/22 [Rx] Follow up Appointment(s)/Referral(s): None,Stated [Primary Care Provider] - 1-2 days Activity/Diet/Wound Care/Special Instructions: Avoid the use of street drugs and alcohol. Take all prescriptions as prescribed. When you are in need of refills on your medications, please contact your medical provider and/or outpatient psychiatrist to have this done. Please go to scheduled outpatient appointment for aftercare treatment. If symptoms return or become worse, call the crisis line at and/or go to the nearest emergency room for evaluation. Discharge Disposition: HOME SELF-CARE
== END 2022-03-18 13:45 | disposition home or self-care (01) | DRG 885 ==
LOC: EC 10:00 → 3MHU 14:45
PROVIDERS: ADMIT Psychiatry & Neurology Psychiatry; ATTEND Psychiatry & Neurology Psychiatry
DX: F25.9 Schizoaffective disorder, unspecified (principal); F31.9 Bipolar disorder, unspecified; F11.10 Opioid abuse, uncomplicated; E66.3 Overweight; Z20.822 Contact with and (suspected) exposure to COVID-19; F41.9 Anxiety disorder, unspecified; K04.7 Periapical abscess without sinus; G89.29 Other chronic pain; M54.9 Dorsalgia, unspecified; M79.606 Pain in leg, unspecified; Z68.32 Body mass index [BMI] 32.0-32.9, adult; Z79.899 Other long term (current) drug therapy; Z85.6 Personal history of leukemia; Z71.41 Alcohol abuse counseling and surveillance of alcoholic; Z71.51 Drug abuse counseling and surveillance of drug abuser; Z88.6 Allergy status to analgesic agent; Z81.8 Family history of other mental and behavioral disorders
CPT/HCPCS: 80053; 80061; 80306; 82075; 83036; 84443; 85025; 87635; 93005; 96372; 99285

== ENCOUNTER 2022-06-21 12:25 | Inpatient (IN) | payer MEDICAID, OTHER ==
--- NOTE | 2022-06-21 13:57 | ED ---
General Adult HPI - General Chief complaint: Psychiatric Symptoms Stated complaint: mental health Time Seen by Provider: 06/21/22 12:27 Source: police, EMS Mode of arrival: EMS Limitations: altered mental status - History of Present Illness Initial comments: Dictation was produced using [employer] dictation software. please excuse any grammatical, word or spelling errors. Chief Complaint: 31-year-old female presents for psychiatric evaluation History of Present Illness: 31-year-old female she presents to the emergency department for psychiatric evaluation. Patient has history of psychiatric disease. She has been admitted to mental health floor recently. Patient is feeling Things around. She's been taking her medications as prescribed. Discharge was completed by boyfriend states that she's been showing psychotic symptoms. Patient denies any suicidal or homicidal ideation. Per police and EMS patient has been showing signs of visual hallucinations. The ROS documented in this emergency department record has been reviewed and confirmed by me. Those systems with pertinent positive or negative responses have been documented in the HPI. All other systems are other negative and/or noncontributory. PHYSICAL EXAM: General Impression: Alert and oriented x3, not in acute distress HEENT: Normocephalic atraumatic, extra-ocular movements intact, pupils equal and reactive to light bilaterally, mucous membranes moist. Cardiovascular: Heart regular rate and rhythm Chest: Able to complete full sentences, no retractions, no tachypnea Musculoskeletal: no peripheral edema Motor: no focal deficits noted Neurological: CN II-XII grossly intact, no focal motor or sensory deficits noted Skin: Intact with no visualized rashes Psych: Normal affect and mood ED course: 31-year-old female presents emergency department for EPS evaluation. Patient has history of psychiatric illness. Vital signs upon arrival are within acceptable limits. Nursing notes and chart review was performed Patient evaluated by EPS. She will be admitted. She complained of dental pain to the left maxillary teeth. There was no identified abscess but there did appear to be some hypertrophy to the surrounding gums. She does have poor dentition. Patient started on every 12 hours Augmentin Patient evaluated by EPS and will be admitted to mental health unit. - Related Data Home Medications Medication Instructions Recorded Confirmed Cholecalciferol [Vitamin D3 (25 25 mcg PO DAILY 06/21/22 06/21/22 Mcg = 1000 Iu)] Divalproex ER [Depakote ER] 1,000 mg PO DIRECTED 06/21/22 06/21/22 Escitalopram [Lexapro] 20 mg PO DAILY 06/21/22 06/21/22 Ibuprofen [Motrin] 800 mg PO TID-W/MEALS PRN 06/21/22 06/21/22 Methadone HCl [Methadone Intensol] 165 mg PO DAILY 06/21/22 06/22/22 hydrOXYzine HCL [Atarax] 25 mg PO TID PRN 06/21/22 06/21/22 norgestimate-ethinyl estradioL 1 tab PO DAILY 06/21/22 06/21/22 [Tri-Estarylla Tablet] Allergies Allergy/AdvReac Type Severity Reaction Status Date / Time ibuprofen [From Motrin] AdvReac Vomiting Verified 06/21/22 13:40 Review of Systems ROS Statement: Those systems with pertinent positive or pertinent negative responses have been documented in the HPI. ROS Other: All systems not noted in ROS Statement are negative. Past Medical History Past Medical History: No Reported History Additional Past Medical History / Comment(s): chronic back and leg pain, h/o childhood leukemia History of Any Multi-Drug Resistant Organisms: None Reported Past Surgical History: Appendectomy Additional Past Surgical History / Comment(s): abdominoplasty Past Psychological History: Anxiety, Bipolar, Depression Smoking Status: Vaper Past Alcohol Use History: None Reported Past Drug Use History: None Reported - Past Family History Father Additional Family Medical History / Comment(s): Father is 52 years of age with possible coronary artery disease. Mother Additional Family Medical History / Comment(s): Mother from emphysema at age 48. Brother(s) Additional Family Medical History / Comment(s): Patient has 2 brothers with no major medical problems. Patient does not have any sisters. General Exam Limitations: altered mental status Course Vital Signs 06/21/22 12:35 Temperature 99.8 F H Pulse Rate 104 H Respiratory 18 Rate Blood Pressure 137/91 O2 Sat by Pulse 98 Oximetry Medical Decision Making - Lab Data Lab Results 06/21/22 06/21/22 06/21/22 Range/Units 12:30 13:37 14:34 Urine HCG, Qual Not Detected (Not Detectd) Urine Opiates Screen Not Detected (NotDetected) Ur Oxycodone Screen Not Detected (NotDetected) Urine Methadone Screen Detected H (NotDetected) Ur Propoxyphene Screen Not Detected (NotDetected) Ur Barbiturates Screen Not Detected (NotDetected) U Tricyclic Antidepress Not Detected (NotDetected) Ur Phencyclidine Scrn Not Detected (NotDetected) Ur Amphetamines Screen Not Detected (NotDetected) U Methamphetamines Scrn Not Detected (NotDetected) U Benzodiazepines Scrn Not Detected (NotDetected) Urine Cocaine Screen Not Detected (NotDetected) U Marijuana (THC) Screen Not Detected (NotDetected) Influenza Type A (PCR) Not Detected (Not Detectd) Influenza Type B (PCR) Not Detected (Not Detectd) RSV (PCR) Not Detected (Not Detectd) SARS-CoV-2 (PCR) Not Detected (Not Detectd) Disposition Clinical Impression: Psychosis Disposition: ADMITTED IP TO THIS HOSP Condition: Fair
[2022-06-21 14:49] LABS: Amphetamine Screen,Urine Not Detected (NotDetected); Barbiturate Screen,Urine Not Detected (NotDetected); Benzodiazepines Screen,Urine Not Detected (NotDetected); Cocaine Screen,Urine Not Detected (NotDetected); Methadone Screen, Urine Detected (NotDetected); Opiate Screen,Urine Not Detected (NotDetected); Oxycodone Screen, Urine Not Detected (NotDetected); Phencyclidine Screen,Urine Not Detected (NotDetected); Tricyclic Antidepressant,Urine Not Detected (NotDetected); Urn Cannabinoid Scrn Not Detected (NotDetected)
[2022-06-21] MEDS ORDERED: IBUPROFEN 800 MG TAB PO STA (15:03)
[2022-06-21] MEDS ORDERED: HALOPERIDOL LACTATE 5 MG/ML 1 ML VIAL IM STA (16:20)
[2022-06-21] MEDS ORDERED: diphenhydrAMINE 50 MG/ML 1 ML VIAL IM STA (16:20)
[2022-06-21] MEDS ORDERED: LORazepam 2 MG/ML INJ IM STA (16:27)
[2022-06-21] MEDS ORDERED: MAGNESIUM HYDROXIDE 2,400 MG/10 ML CUP PO PRN (17:56)
[2022-06-21] MEDS ORDERED: HALOPERIDOL LACTATE 5 MG/ML 1 ML VIAL IM PRN (17:56)
[2022-06-21] MEDS ORDERED: MAG HYDROX/AL HYDROX/SIMETH 30 ML CUP PO PRN (17:56)
[2022-06-21] MEDS ORDERED: LORazepam 2 MG/ML INJ IM PRN (17:59)
[2022-06-21] MEDS: haloperidoL 5 MG TAB PO PRN (18:38)
[2022-06-21] MEDS: LORazepam 1 MG TAB PO PRN (19:00)
[2022-06-21] MEDS: AMOXIC-POT CLAV 875-125MG 1 EACH TAB PO SCH (20:52)
[2022-06-22] MEDS: haloperidoL 5 MG TAB PO PRN (01:40)
[2022-06-22] MEDS: LORazepam 1 MG TAB PO PRN (01:40)
--- NOTE | 2022-06-22 04:48 | P.CONS ---
History of Present Illness - Reason for Consult Consult date: 06/22/22 - History of Present Illness The patient is a 31-year-old female with a PMH of substance abuse on methadone who was brought to the emergency room under police custody after petition by her boyfriend due to strange behavior. The patient was admitted to the mental health unit where she was seen and evaluated with the mental health unit RN Barbara. The patient reported that she has been arguing with her boyfriend and that they're claiming that she is hearing things in fact she is not. She reports taking 155 mg of methadone daily. She denied any physical complaints at the time of interview. Denied experiencing chest discomfort, shortness of breath, fever, chills, cough, nausea, vomiting, abdominal pain, diarrhea. Review of systems: Pertinent positives and negatives as discussed in HPI, a complete review of systems was performed and all other systems are negative. Physical examination: General: non toxic, no distress, appears at stated age, obese Derm: no unusual rashes/lesions, no unusual ecchymoses, warm, dry Head: atraumatic, normocephalic, symmetric Eyes: EOMI, no lid lag, anicteric sclera ENT: Nose and ears atraumatic, no thrush, no pharyngeal erythema Neck: trachea midline, supple Mouth: no lip lesion, mucus membranes moist Cardiovascular: S1S2 reg, no murmur, no edema Lungs: CTA bilateral, no rhonchi, no rales , no accessory muscle use Abdominal: soft, nontender to palpation, no guarding Ext: no gross muscle atrophy, no contractures, Neuro: No gross focal neuro deficits noted Psych: Alert, oriented, appropriate affect Assessment/plan Chronic methadone use -Home dose resumed Psychosis -As per psychiatry Thank you for allowing us to participate in the care of this patient. We will follow peripherally. Do not hesitate to contact us with questions. Someone can be reached from the [facility] hospitalist group at all hours of the day at [phone]. Past Medical History Past Medical History: No Reported History Additional Past Medical History / Comment(s): chronic back and leg pain, h/o childhood leukemia History of Any Multi-Drug Resistant Organisms: None Reported Past Surgical History: Appendectomy Additional Past Surgical History / Comment(s): abdominoplasty Past Psychological History: Anxiety, Bipolar, Depression Smoking Status: Vaper Past Alcohol Use History: None Reported Past Drug Use History: None Reported - Past Family History Father Additional Family Medical History / Comment(s): Father is 52 years of age with possible coronary artery disease. Mother Additional Family Medical History / Comment(s): Mother from emphysema at age 48. Brother(s) Additional Family Medical History / Comment(s): Patient has 2 brothers with no major medical problems. Patient does not have any sisters. Medications and Allergies Home Medications Medication Instructions Recorded Confirmed Type Cholecalciferol [Vitamin D3 (25 25 mcg PO DAILY 06/21/22 06/21/22 History Mcg = 1000 Iu)] Divalproex ER [Depakote ER] 1,000 mg PO DIRECTED 06/21/22 06/21/22 History Escitalopram [Lexapro] 20 mg PO DAILY 06/21/22 06/21/22 History Ibuprofen [Motrin] 800 mg PO TID-W/MEALS PRN 06/21/22 06/21/22 History Methadone HCl [Methadone Intensol] 160 mg PO DIRECTED 06/21/22 06/21/22 History hydrOXYzine HCL [Atarax] 25 mg PO TID PRN 06/21/22 06/21/22 History norgestimate-ethinyl estradioL 1 tab PO DAILY 06/21/22 06/21/22 History [Tri-Estarylla Tablet] Allergies Allergy/AdvReac Type Severity Reaction Status Date / Time acetaminophen [From Tylenol] AdvReac Vomiting Verified 06/21/22 13:03 ibuprofen [From Motrin] AdvReac Vomiting Verified 06/21/22 13:40 Physical Exam Vitals: Vital Signs Temp Pulse Pulse Resp BP BP Pulse Ox 06/21/22 17:55 97.6 F 101 H 16 132/79 06/21/22 12:35 99.8 F H 104 H 18 137/91 98 Intake and Output 06/21/22 06/21/22 06/22/22 14:59 22:59 06:59 Other: Weight 90.718 kg Results Labs: Abnormal Lab Results - Last 24 Hours (Table) 06/21/22 Range/Units 13:37 Urine Methadone Screen Detected H (NotDetected)
[2022-06-22] MEDS: CHOLECALCIFEROL 25 MCG (1000 IU) TABLET PO SCH (08:01)
[2022-06-22] MEDS: AMOXIC-POT CLAV 875-125MG 1 EACH TAB PO SCH ×2 (08:01→20:22)
[2022-06-22] MEDS: ESCITALOPRAM 20 MG TAB PO SCH (08:02)
[2022-06-22] MEDS: NICOTINE 14MG/24HR PATCH TRANSDERM SCH (08:02)
[2022-06-22] MEDS ORDERED: METHADONE 10 MG TAB PO SCH (09:00)
--- NOTE | 2022-06-22 13:44 | P.HP ---
Psychiatric H&P - . H&P Date: 06/22/22 History & Physical: Allergies Allergy/AdvReac Type Severity Reaction Status Date / Time acetaminophen [From Tylenol] AdvReac Vomiting Verified 06/21/22 13:03 ibuprofen [From Motrin] AdvReac Vomiting Verified 06/21/22 13:40 Vital Signs Temp 97.6 F 06/21/22 17:55 Pulse 80 06/22/22 06:53 Resp 18 06/22/22 06:53 BP 124/83 06/22/22 06:53 Pulse Ox 98 06/21/22 12:35 FiO2 Intake & Output 06/21/22 06/22/22 06/22/22 18:59 06:59 18:59 Weight 90.718 kg Laboratory Last Values Urine HCG, Qual Not Detected (Not Detectd) 06/21/22 12:30 Urine Opiates Screen Not Detected (NotDetected) 06/21/22 13:37 Ur Oxycodone Screen Not Detected (NotDetected) 06/21/22 13:37 Urine Methadone Screen Detected (NotDetected) H 06/21/22 13:37 Ur Propoxyphene Screen Not Detected (NotDetected) 06/21/22 13:37 Ur Barbiturates Screen Not Detected (NotDetected) 06/21/22 13:37 U Tricyclic Antidepress Not Detected (NotDetected) 06/21/22 13:37 Ur Phencyclidine Scrn Not Detected (NotDetected) 06/21/22 13:37 Ur Amphetamines Screen Not Detected (NotDetected) 06/21/22 13:37 U Methamphetamines Scrn Not Detected (NotDetected) 06/21/22 13:37 U Benzodiazepines Scrn Not Detected (NotDetected) 06/21/22 13:37 Urine Cocaine Screen Not Detected (NotDetected) 06/21/22 13:37 U Marijuana (THC) Screen Not Detected (NotDetected) 06/21/22 13:37 Influenza Type A (PCR) Not Detected (Not Detectd) 06/21/22 14:34 Influenza Type B (PCR) Not Detected (Not Detectd) 06/21/22 14:34 RSV (PCR) Not Detected (Not Detectd) 06/21/22 14:34 SARS-CoV-2 (PCR) Not Detected (Not Detectd) 06/21/22 14:34 06/22/22 13:43 IDENTIFYING DATA: Patient is a 31-year-old female with significant history of opiate dependence and schizoaffective disorder who presents to emergency department for acute psychosis. HPI: Patient presented to the hospital on 06/21/2022, brought into the emergency department by her boyfriend. The patient was noted to be screaming obscenities and screaming that people were staring at her and watching her goes to the bathroom when she was in the room alone. She was also threatening to go obtain a firearm. The patient was petitioned by her boyfriend. Reportedly, the patient has becoming more bizarre and agitated at home. There is concern of mold exposure and dental infection that may have precipitated her mental health crisis. The patient was subsequent admitted onto our psychiatric unit. Demand has been filed for mental health treatment. Upon evaluation by this provider, the patient reports that she is "not crazy, there are people in the home next to us that are constantly arguing and being abusive to each other. I know they are there." She maintains that these hallucinations are not hallucinations because they only occur when she is at home and not when she is outside the home. She is currently denying any suicidal or homicidal ideation, intention, and/or plan. She is currently not endorsing any visual hallucinations. She does report significant paranoia rega rding these neighbors. She denies any other delusions to this provider. PAST PSYCHIATRIC HISTORY: Patient states that she has a history of schizoaffective disorder. The patient was present regimen of Depakote, Lexapro, atarax, and Methadone. She was last hospitalized on our psychiatric unit in February 2022 for psychosis. Patient denies any history of suicide attempts in the past. The patient also has a history of previously being prescribed Lexapro, Remeron, Haldol, Artane, and Klonopin. PMH: Past Medical History: No Reported History Additional Past Medical History / Comment(s): chronic back and leg pain, h/o childhood leukemia History of Any Multi-Drug Resistant Organisms: None Reported Past Surgical History: Appendectomy Additional Past Surgical History / Comment(s): abdominoplasty Past Psychological History: Anxiety, Bipolar, Depression Smoking Status: Vaper Past Alcohol Use History: None Reported Past Drug Use History: None Reported ALLERGIES: Acetaminophen, ibuprofen CHEMICAL DEPENDENCY HISTORY: The patient currently receives opiate agonist therapy with methadone. She denies any other substance abuse. She reports no alcohol, tobacco, marijuana, or illicit drug use. FAMILY PSYCHIATRIC/SUBSTANCE USE HISTORY: The patient reports her mother has schizophrenia. SOCIAL HISTORY: Patient was born and raised in [place], [place]. She graduated high school. She reports a history of incarceration for disorderly conduct. She reports that she has 3 children are currently under the care of her mother. She currently lives with her boyfriend in a house. She collects Social Security. MENTAL STATUS EXAM: General Appearance: Patient appears to be stated age is alert, directable, and attempts to cooperate. Patient appears to have disheveled hygiene and grooming. Obese body habitus. Wearing glasses. Behavior: Psychomotor agitation appears to be evident. Eye contact is poor. Speech: Patient's speech is fluent and nonpressured. Hyperverbal, repetitive. Mood/Affect: Patient reports their mood is "annoyed," affect is congruent and labile. Suicidality/Homicidality: Patient denies having any homicidal ideation intent or plan. Denies any suicidal ideations intent or plan Perceptions: Patient denies any visual hallucinations however she does endorse auditory hallucinations. Though content/process: There is no evidence of any delusional thought content and thought process is linear and goal-directed. Memory and concentration: AOX3, grossly intact for the purposes of this session. Can spell "WORLD" backwards Judgment and insight: Poor STRENGTHS/WEAKNESSES: Strength is that the patient does not engage in substance abuse. Weakness is that the patient has a significant history of severe mental illness. INTELLECT: average IMPRESSIONS: Schizoaffective disorder, bipolar type unspecified anxiety disorder PLAN: -Patient is admitted under involuntary status to MHU for stabilization of psychiatric symptoms and safety. A demand for court has been filed. -Medications : Will start patient on Lexapro 20 mg daily for depression/anxiety Zyprexa 5 mg by mouth at bedtime for mood stabilization/psychosis Restart Depakote ER 1500 mg by mouth at bedtime for mood stabilization -Ativan Haldol PRN for agitation/aggression -Patient was informed of the risks, benefits and side effects of the medication and patient verbally consented to taking the medications. Patient signed med consent form and was placed in chart. -Internal Medicine consult to perform medical evaluation and physical. -SW on board for discharge planning. Encourage patient to participate in groups to work on coping skills. 06/22/22 13:43
[2022-06-22] MEDS: ACETAMINOPHEN TAB 325 MG TAB PO PRN (14:34)
[2022-06-22] MEDS: OLANZapine 5 MG TAB PO SCH (20:22)
[2022-06-22] MEDS: DIVALPROEX ER 500 MG TAB.ER.24H PO SCH (20:22)
[2022-06-23] MEDS: METHADONE 10 MG TAB PO SCH (08:36)
[2022-06-23] MEDS: AMOXIC-POT CLAV 875-125MG 1 EACH TAB PO SCH ×2 (08:37→20:04)
[2022-06-23] MEDS: NICOTINE 14MG/24HR PATCH TRANSDERM SCH (08:37)
[2022-06-23] MEDS: ESCITALOPRAM 20 MG TAB PO SCH (08:38)
[2022-06-23] MEDS: CHOLECALCIFEROL 25 MCG (1000 IU) TABLET PO SCH (08:38)
[2022-06-23] MEDS: ACETAMINOPHEN TAB 325 MG TAB PO PRN ×2 (11:02→17:26)
[2022-06-23 11:55] LABS: Basophils # (A) 0.1 k/uL (0-0.2); Basophils % (A) 1 %; Eosinophils # (A) 0.1 k/uL (0-0.7); Eosinophils % (A) 2 %; HCT 38.8 % (34.0-46.0); HGB 13.4 gm/dL (11.4-16.0); Lymphocytes # (A) 4.1 k/uL (1.0-4.8); Lymphocytes % (A) 53 %; MCH 30.1 pg (25.0-35.0); MCHC 34.7 g/dL (31.0-37.0); MCV 86.9 fL (80.0-100.0); Mean Platelet Volume 7.5; Monocytes # (A) 0.6 k/uL (0-1.0); Monocytes % (A) 8 %; Neutrophils # (A) 2.7 k/uL (1.3-7.7); Neutrophils % (A) 35 %; Platelet Count 239 k/uL (150-450); RBC 4.46 m/uL (3.80-5.40); WBC 7.9 k/uL (3.8-10.6)
[2022-06-23 12:08] LABS: ALT 32 U/L (4-34); AST 29 U/L (14-36); African American GFR (CKD) >90 (>60 ml/min/1.73 sqM); Albumin 4.5 g/dL (3.5-5.0); Alkaline Phosphatase 53 U/L (38-126); Anion Gap 8 mmol/L; Blood Urea Nitrogen 13 mg/dL (7-17); Calcium 9.3 mg/dL (8.4-10.2); Carbon Dioxide 28 mmol/L (22-30); Chloride 103 mmol/L (98-107); Glucose 98 mg/dL (74-99); Non-African American GFR(CKD) >90 (>60 ml/min/1.73 sqM); Potassium 4.3 mmol/L (3.5-5.1); Sodium 139 mmol/L (137-145); Total Bilirubin 0.2 mg/dL (0.2-1.3); Total Protein 7.2 g/dL (6.3-8.2)
--- NOTE | 2022-06-23 12:08 | P.PN ---
Progress Note - Text Progress Note Date: 06/23/22 Interval History: Patient was seen wandering the hallways and was directable and agreeable to speak with real estate underwriter in the office. Currently, The patient is not reporting any suicidal or homicidal ideation, intention, or plan. The patient reports no auditory or visual hallucinations. She has been adherent with her medication is not endorsing any significant side effects. She reports no issues regarding her sleep or appetite. The patient wishes to waive and stipulate court. She wishes to follow with [facility] and take her medications. She reports no issues regarding opiate withdrawal. She denies any health issues or concerns his provider. Mental Status Exam: General Appearance: Patient appears to be stated age is alert, directable, and cooperative. Wears glasses. Obese body habitus. Behavior: Patient is calmly seated without any agitated behavior. Eye contact is appropriate. Speech: Patient's speech is fluent and nonpressured. Slightly hyperverbal. Mood/Affect: Mood is improving mildly, affect is congruent and euthymic. Suicidality/Homicidality: Patient denies having any suicidal or homicidal ideation intent or plan. Perceptions: Patient denies any visual hallucinations and denies any auditory hallucinations Though content/process: There is no evidence of any delusional thought content and thought process is linear and goal-directed. Memory and concentration: AOX3, grossly intact for the purposes of this session Judgment and insight: Improving mildly Vital Signs Temp 97.3 F L 06/23/22 08:42 Pulse 88 06/23/22 08:42 Resp 16 06/23/22 08:42 BP 134/71 06/23/22 08:42 Pulse Ox 97 06/23/22 08:42 FiO2 Laboratory Results - Last 24 Hours 06/23/22 06/23/22 11:28 11:28 WBC 7.9 RBC 4.46 Hgb 13.4 Hct 38.8 MCV 86.9 MCH 30.1 MCHC 34.7 RDW 13.0 Plt Count 239 MPV 7.5 Neutrophils % 35 Lymphocytes % 53 Monocytes % 8 Eosinophils % 2 Basophils % 1 Neutrophils # 2.7 Lymphocytes # 4.1 Monocytes # 0.6 Eosinophils # 0.1 Basophils # 0.1 Sodium 139 Potassium 4.3 Chloride 103 Carbon Dioxide 28 Anion Gap 8 BUN 13 Creatinine 0.54 Est GFR (CKD-EPI)AfAm >90 Est GFR (CKD-EPI)NonAf >90 Glucose 98 Calcium 9.3 Total Bilirubin 0.2 AST 29 ALT 32 Alkaline Phosphatase 53 Total Protein 7.2 Albumin 4.5 Assessment Schizoaffective disorder, bipolar type unspecified anxiety disorder Opiate dependence, on opiate agonist therapy Plan: -Patient continues to meet criteria for inpatient psychiatric admission for symptom stabilization and safety. Patient has signed adult voluntary form and medication consent and was placed in patient's chart. -Medications: Lexapro 20 mg daily for depression/anxiety Zyprexa 5 mg by mouth at bedtime for mood stabilization/psychosis Depakote ER 1500 mg by mouth at bedtime for mood stabilization -When necessary Ativan and Haldol for agitation/aggression. -SW on board for discharge planning. Encouraged the patient to participate in milieu.
[2022-06-23 12:13] LABS: Valproic Acid (Depakene) 42.6 ug/mL
[2022-06-23] MEDS: LORazepam 1 MG TAB PO PRN (17:25)
[2022-06-23 19:26] LABS: Chol/HDL Ratio 4.74 Ratio; LDL Cholesterol,Calculated 101.6 mg/dL (0.0-131.0)
[2022-06-23] MEDS: OLANZapine 5 MG TAB PO SCH (20:04)
[2022-06-23] MEDS: DIVALPROEX ER 500 MG TAB.ER.24H PO SCH (20:04)
[2022-06-24 06:40] VITALS: RESP 18; TEMP 97.9
[2022-06-24] MEDS: METHADONE 10 MG TAB PO SCH (08:43)
[2022-06-24] MEDS: NICOTINE 14MG/24HR PATCH TRANSDERM SCH (08:43)
[2022-06-24] MEDS: ESCITALOPRAM 20 MG TAB PO SCH (08:44)
[2022-06-24] MEDS: CHOLECALCIFEROL 25 MCG (1000 IU) TABLET PO SCH (08:44)
[2022-06-24] MEDS: AMOXIC-POT CLAV 875-125MG 1 EACH TAB PO SCH ×2 (08:45→19:06)
[2022-06-24] MEDS: ACETAMINOPHEN TAB 325 MG TAB PO PRN (10:32)
--- NOTE | 2022-06-24 10:57 | P.PN ---
Progress Note - Text Progress Note Date: 06/24/22 Interval History: Patient was seen wandering the hallways and was directable and agreeable to sp karena with junior underwriter. Patient appears to be fairly frustrated. She claims that she is doing a bit better at nighttime. She claims that she signed the waive and stipulation. She also discharge planning, we spoke about potential discharge tomorrow if patient is doing well on the medications. She claims that she is "all right". She states that her mood has been gradually improving, also admitting to some anxiety. She did speak vaguely about going to some groups. She has been adherent with her medication is not endorsing any significant side effects. At this time she is denying any suicidal or homicidal ideations intent or plan. She reports no issues regarding opiate withdrawal. Mental Status Exam: General Appearance: Patient appears to be stated age is alert, directable, and cooperative. Wears glasses. Obese body habitus. Behavior: Patient is calmly seated without any agitated behavior. Eye contact is appropriate. Speech: Patient's speech is fluent and nonpressured. Slightly hyperverbal. Mood/Affect: Mood is claims is improving mildly, affect is congruent and appears upset at times. Suicidality/Homicidality: Patient denies having any suicidal or homicidal ideation intent or plan. Perceptions: Patient denies any visual hallucinations and denies any auditory hallucinations Though content/process: There is no evidence of any delusional thought content and thought process is linear and goal-directed. focused on discharge. Memory and concentration: AOX3, grossly intact for the purposes of this session Judgment and insight: Improving mildly Assessment Schizoaffective disorder, bipolar type unspecified anxiety disorder Opiate dependence, on opiate agonist therapy Plan: -Patient continues to meet criteria for inpatient psychiatric admission for symptom stabilization and safety. Patient has signed adult voluntary form and medication consent and was placed in patient's chart. -Medications: continue Lexapro 20 mg daily for depression/anxiety, Zyprexa 5 mg by mouth at bedtime for mood stabilization/psychosis, Depakote ER 1500 mg by mouth at bedtime for mood stabilization -When necessary Ativan and Haldol for agitation/aggression. -SW on board for discharge planning. Encouraged the patient to participate in milieu. patient apparently just signed waive and stip, will confirm this with the courts and if patient continues to improve and doing well then can likely look at discharge tomorrow if she has a safe plan.
[2022-06-24] MEDS ORDERED: NEOMYCIN-BACITRACIN-POLY OINT 14 GM TUBE TOPICAL PRN (11:22)
[2022-06-24] MEDS ORDERED: BENZOCAINE 20 % GEL 11.9 GM TUBE MM PRN (11:28)
[2022-06-24] MEDS: LORazepam 1 MG TAB PO PRN ×2 (12:36→23:08)
[2022-06-24] MEDS ORDERED: NICOTINE GUM (POLACRILEX) 2 MG GUM BUCCAL PRN (17:13)
[2022-06-24] MEDS: DIVALPROEX ER 500 MG TAB.ER.24H PO SCH (19:06)
[2022-06-24] MEDS: OLANZapine 5 MG TAB PO SCH (19:06)
[2022-06-25] MEDS: ACETAMINOPHEN TAB 325 MG TAB PO PRN (04:45)
[2022-06-25 06:45] VITALS: BP 130/73; PULSE 86
[2022-06-25] MEDS: ESCITALOPRAM 20 MG TAB PO SCH (07:58)
[2022-06-25] MEDS: AMOXIC-POT CLAV 875-125MG 1 EACH TAB PO SCH (07:58)
[2022-06-25] MEDS: CHOLECALCIFEROL 25 MCG (1000 IU) TABLET PO SCH (07:59)
[2022-06-25] MEDS: NICOTINE 14MG/24HR PATCH TRANSDERM SCH (07:59)
[2022-06-25] MEDS: METHADONE 10 MG TAB PO SCH (08:01)
--- NOTE | 2022-06-25 10:02 | P.DS ---
Providers Date of admission: 06/21/22 17:37 Expected date of discharge: 06/25/22 Attending physician: Johann Machado MD Consults: 06/21/22 17:56 Consult Physician Routine Consulting Provider: Paco Morley Consult Reason/Comments: H&P and medical Do you want consulting provider notified?: Yes Primary care physician: Stated None - Discharge Diagnosis(es) (1) Schizoaffective disorder, bipolar type Current Visit: Yes Status: Acute Priority: High (2) Anxiety disorder, unspecified Current Visit: Yes Status: Acute Priority: Medium (3) Opioid dependence on agonist therapy Current Visit: Yes Status: Acute Priority: Low Hospital Course: Admission HPI: Admission note was completed by Dr. Machado " Patient is a 31-year-old female with significant history of opiate dependence and schizoaffective disorder who presents to emergency department for acute psyc hosis. Patient presented to the hospital on 06/21/2022, brought into the emergency department by her boyfriend. The patient was noted to be screaming obscenities and screaming that people were staring at her and watching her goes to the bathroom when she was in the room alone. She was also threatening to go obtain a firearm. The patient was petitioned by her boyfriend. Reportedly, the patient has becoming more bizarre and agitated at home. There is concern of mold exposure and dental infection that may have precipitated her mental health crisis. The patient was subsequent admitted onto our psychiatric unit. Demand has been filed for mental health treatment. Upon evaluation by this provider, the patient reports that she is "not crazy, there are people in the home next to us that are constantly arguing and being abusive to each other. I know they are there." She maintains that these hallucinations are not hallucinations because they only occur when she is at home and not when she is outside the home. She is currently denying any suicidal or homicidal ideation, intention, and/or plan. She is currently not endorsing any visual hallucinations. She does report significant paranoia regarding these neighbors. She denies any other delusions to this provider." Hospital course: Upon admission to the unit patient was directable and agreeable to commence treatment and signed adult voluntary form. Patient got along well with other patients on the unit and followed unit protocol. Patient was compliant with the medications and denied any side effects throughout hospital course. Patient was started on Lexapro and increased her dose of 20 mg daily for mood/anxiety, Zyprexa 5 mg daily at bedtime for mood stabilization/psychosis, Depakote ER 1500 mg daily at bedtime for mood stabilization. Patient was also continued on methadone 130 mg daily for opiate dependence. EKG was done which showed normal sinus rhythm and a QTC of 458. Patient spoke of her stressors and engaged in therapy both group and individual. Patient was also seen by medical team for history and physical exam. Throughout the course of the hospitalization patient gradually improved with regards to mood, anxiety, sleep and returned back to their baseline level of functioning. On the day of discharge patient denied any suicidal or homicidal ideations intent or plan denied any auditory or visual h allucinations. Patient endorsed wanting to live for her health and her kids. The patient denied any access to guns or weapons. Patient denied any paranoia and did not endorse any delusions. Patient does have a significant history of substance abuse and was counseled on abstaining from all substances including alcohol and marijuana. Patient is going to continue to follow-up at [facility] for her MAT and treatment in [place]. Patient was also counseled on the medications and need for regular compliance and was encouraged to follow-up with their outpatient appointment for mental health and also for primary care. Prior to discharge a family meeting will be arranged by foster care social worker to answer any questions and ensure safety upon discharge. Mental status exam: General Appearance: Patient appears to be wearing glasses, stated age is alert, pleasant, and cooperative. Patient is in no acute distress and has improved hygiene and grooming Behavior: Patient is calmly seated without any agitated behavior. Speech: Patient's speech is fluent and nonpressured. Mood/Affect: Patient reports their mood is "good", affect is congruent and euthymic. Suicidality/Homicidality: Patient denies having any suicidal or homicidal ideation intent or plan. Perceptions: Patient denies any auditory or visual hallucinations. Though content/process: There is no evidence of any delusional thought content and thought process is linear and goal-directed. Memory and concentration: AOX3, grossly intact for the purposes of this session. Can spell "WORLD" backwards correctly. Judgment and insight: improved with guarded prognosis Impression: Schizoaffective disorder bipolar type Unspecified anxiety disorder Opioid dependence currently on agonist therapy Plan: -Continue with discharge today as patient has improved and stabilized psychiatrically and is not currently an imminent threat to herself and/or others. Patient will remain at chronically elevated risk for harm to self and/or others due to her impulsivity. -Continue medications: Lexapro 20 mg daily for mood/anxiety, Zyprexa 5 mg daily at bedtime for mood stabilization/psychosis, Depakote ER 1500 mg daily at bedtime for mood stabilization. -Patient was counseled on the need for medication compliance and appropriate follow-up at mental health and also primary care for medical issues. Patient verbalized understanding and agreed. -Social work to arrange for and conduct family meeting to ensure safety upon discharge and answer any questions/concerns. Social work also to arrange for patients follow up appointments with [facility] for psychiatric care along with follow up with primary care provider. -Patient counseled on abstaining from recreational drugs and marijuana and alcohol. Was informed/educated on the adverse effects on their physical and mental health. Patient verbally agreed and understood. -Patient was instructed to return to the hospital or seek immediate medical care if their psychiatric or medical symptoms do worsen or reoccur. Allergies Allergy/AdvReac Type Severity Reaction Status Date / Time ibuprofen [From Motrin] AdvReac Vomiting Verified 06/21/22 13:40 Laboratory Results WBC 7.9 k/uL (3.8-10.6) 06/23/22 11:28 RBC 4.46 m/uL (3.80-5.40) 06/23/22 11:28 Hgb 13.4 gm/dL (11.4-16.0) 06/23/22 11:28 Hct 38.8 % (34.0-46.0) 06/23/22 11:28 MCV 86.9 fL (80.0-100.0) 06/23/22 11:28 MCH 30.1 pg (25.0-35.0) 06/23/22 11:28 MCHC 34.7 g/dL (31.0-37.0) 06/23/22 11:28 RDW 13.0 % (11.5-15.5) 06/23/22 11:28 Plt Count 239 k/uL (150-450) 06/23/22 11:28 MPV 7.5 06/23/22 11:28 Neutrophils % 35 % 06/23/22 11:28 Lymphocytes % 53 % 06/23/22 11:28 Monocytes % 8 % 06/23/22 11:28 Eosinophils % 2 % 06/23/22 11:28 Basophils % 1 % 06/23/22 11:28 Neutrophils # 2.7 k/uL (1.3-7.7) 06/23/22 11:28 Lymphocytes # 4.1 k/uL (1.0-4.8) 06/23/22 11:28 Monocytes # 0.6 k/uL (0-1.0) 06/23/22 11:28 Eosinophils # 0.1 k/uL (0-0.7) 06/23/22 11:28 Basophils # 0.1 k/uL (0-0.2) 06/23/22 11:28 Sodium 139 mmol/L (137-145) 06/23/22 11:28 Potassium 4.3 mmol/L (3.5-5.1) 06/23/22 11:28 Chloride 103 mmol/L (98-107) 06/23/22 11:28 Carbon Dioxide 28 mmol/L (22-30) 06/23/22 11:28 Anion Gap 8 mmol/L 06/23/22 11:28 BUN 13 mg/dL (7-17) 06/23/22 11:28 Creatinine 0.54 mg/dL (0.52-1.04) 06/23/22 11:28 Est GFR (CKD-EPI)AfAm >90 (>60 ml/min/1.73 sqM) 06/23/22 11:28 Est GFR (CKD-EPI)NonAf >90 (>60 ml/min/1.73 sqM) 06/23/22 11:28 Glucose 98 mg/dL (74-99) 06/23/22 11:[address] Glu mg/dL 124 06/23/22 11:28 Hemoglobin A1c 6.0 % (0.0-6.0) 06/23/22 11:28 Calcium 9.3 mg/dL (8.4-10.2) 06/23/22 11:28 Total Bilirubin 0.2 mg/dL (0.2-1.3) 06/23/22 11:28 AST 29 U/L (14-36) 06/23/22 11:28 ALT 32 U/L (4-34) 06/23/22 11:28 Alkaline Phosphatase 53 U/L (38-126) 06/23/22 11:28 Total Protein 7.2 g/dL (6.3-8.2) 06/23/22 11:28 Albumin 4.5 g/dL (3.5-5.0) 06/23/22 11:28 Triglycerides 198.00 mg/dL (0.00-149.00) H 06/23/22 11:28 Cholesterol 179.00 mg/dL (0.00-200.00) 06/23/22 11:28 LDL Cholesterol, Calc 101.6 mg/dL (0.0-131.0) 06/23/22 11:28 VLDL Cholesterol, Calc 39.60 mg/dL (5.00-40.00) 06/23/22 11:28 HDL Cholesterol 37.80 mg/dL (40.00-60.00) L 06/23/22 11:28 Cholesterol/HDL Ratio 4.74 Ratio 06/23/22 11:28 TSH 3.670 mIU/L (0.465-4.680) 06/23/22 11:28 Urine HCG, Qual Not Detected (Not Detectd) 06/21/22 12:30 Urine Opiates Screen Not Detected (NotDetected) 06/21/22 13:37 Ur Oxycodone Screen Not Detected (NotDetected) 06/21/22 13:37 Urine Methadone Screen Detected (NotDetected) H 06/21/22 13:37 Ur Propoxyphene Screen Not Detected (NotDetected) 06/21/22 13:37 Ur Barbiturates Screen Not Detected (NotDetected) 06/21/22 13:37 Valproic Acid 42.6 ug/mL 06/23/22 11:28 U Tricyclic Antidepress Not Detected (NotDetected) 06/21/22 13:37 Ur Phencyclidine Scrn Not Detected (NotDetected) 06/21/22 13:37 Ur Amphetamines Screen Not Detected (NotDetected) 06/21/22 13:37 U Methamphetamines Scrn Not Detected (NotDetected) 06/21/22 13:37 U Benzodiazepines Scrn Not Detected (NotDetected) 06/21/22 13:37 Urine Cocaine Screen Not Detected (NotDetected) 06/21/22 13:37 U Marijuana (THC) Screen Not Detected (NotDetected) 06/21/22 13:37 Influenza Type A (PCR) Not Detected (Not Detectd) 06/21/22 14:34 Influenza Type B (PCR) Not Detected (Not Detectd) 06/21/22 14:34 RSV (PCR) Not Detected (Not Detectd) 06/21/22 14:34 SARS-CoV-2 (PCR) Not Detected (Not Detectd) 06/21/22 14:34 Vital Signs Temp 97.9 F 06/25/22 06:44 Pulse 86 06/25/22 06:44 Resp 18 06/25/22 06:44 BP 130/73 06/25/22 06:44 Pulse Ox 96 06/25/22 06:44 FiO2 Patient Condition at Discharge: Stable Plan - Discharge Summary New Discharge Prescriptions: New Divalproex ER [Depakote ER] 1,500 mg PO HS 30 Days tab Nicotine 14Mg/24Hr Patch [Habitrol] 1 patch TRANSDERM DAILY 14 Days patch Nicotine Gum (Polacrilex) [Nicorette] 2 mg BUCCAL Q4HR PRN 28 Days pieceofgum PRN Reason: Nicotine Cravings Amoxic-Pot Clav 875-125Mg [Augmentin 875-125] 1 each PO BID 3 Days tab Methadone [Dolophine] 130 mg PO DAILY tab Benzocaine 20 % Gel [Orajel] 1 applic MM BID PRN #1 each PRN Reason: Pain OLANZapine [ZyPREXA] 5 mg PO HS 30 Days tab Continue norgestimate-ethinyl estradioL [Tri-Estarylla Tablet] 1 tab PO DAILY Ibuprofen [Motrin] 800 mg PO TID-W/MEALS PRN PRN Reason: Pain Or Fever > 100.5 Cholecalciferol [Vitamin D3 (25 Mcg = 1000 Iu)] 25 mcg PO DAILY 30 Days tab Escitalopram [Lexapro] 20 mg PO DAILY 30 Days tab Discontinued hydrOXYzine HCL [Atarax] 25 mg PO TID PRN PRN Reason: Anxiety Methadone HCl [Methadone Intensol] 165 mg PO DAILY Divalproex ER [Depakote ER] 1,000 mg PO DIRECTED Discharge Medication List Ibuprofen [Motrin] 800 mg PO TID-W/MEALS PRN 06/21/22 [History] norgestimate-ethinyl estradioL [Tri-Estarylla Tablet] 1 tab PO DAILY 06/21/22 [History] Amoxic-Pot Clav 875-125Mg [Augmentin 875-125] 1 each PO BID 3 Days tab 06/25/22 [Rx] Benzocaine 20 % Gel [Orajel] 1 applic MM BID PRN #1 each 06/25/22 [Rx] Cholecalciferol [Vitamin D3 (25 Mcg = 1000 Iu)] 25 mcg PO DAILY 30 Days tab 06/25/22 [Rx] Divalproex ER [Depakote ER] 1,500 mg PO HS 30 Days tab 06/25/22 [Rx] Escitalopram [Lexapro] 20 mg PO DAILY 30 Days tab 06/25/22 [Rx] Methadone [Dolophine] 130 mg PO DAILY tab 06/25/22 [Rx] Nicotine 14Mg/24Hr Patch [Habitrol] 1 patch TRANSDERM DAILY 14 Days patch 06/25/22 [Rx] Nicotine Gum (Polacrilex) [Nicorette] 2 mg BUCCAL Q4HR PRN 28 Days pieceofgum 06/25/22 [Rx] OLANZapine [ZyPREXA] 5 mg PO HS 30 Days tab 06/25/22 [Rx] Follow up Appointment(s)/Referral(s): None,Stated [Primary Care Provider] - 1-2 days Activity/Diet/Wound Care/Special Instructions: Avoid the use of street drugs and alcohol. Take all prescriptions as prescribed. When you are in need of refills on your medications, please contact your medical provider and/or outpatient psychiatrist to have this done. Please go to scheduled outpatient appointment for aftercare treatment. If symptoms return or become worse, call the crisis line at and/or go to the nearest emergency room for evaluation Discharge Disposition: HOME SELF-CARE
== END 2022-06-25 12:07 | disposition home or self-care (01) | DRG 885 ==
LOC: EC 12:25 → 3MHU 17:37
PROVIDERS: ADMIT Psychiatry & Neurology Psychiatry; ATTEND Psychiatry & Neurology Psychiatry
DX: F25.0 Schizoaffective disorder, bipolar type (principal); F11.20 Opioid dependence, uncomplicated; R45.851 Suicidal ideations; Z20.822 Contact with and (suspected) exposure to COVID-19; F41.9 Anxiety disorder, unspecified; K08.89 Other specified disorders of teeth and supporting structures; Z79.899 Other long term (current) drug therapy; Z88.6 Allergy status to analgesic agent; Z71.51 Drug abuse counseling and surveillance of drug abuser; G89.29 Other chronic pain; M54.9 Dorsalgia, unspecified; M79.606 Pain in leg, unspecified
CPT/HCPCS: 80053; 80061; 80164; 80306; 81025; 82075; 83036; 84443; 85025; 87636; 93005; 96372; 99285

== ENCOUNTER 2022-06-27 17:54 | Emergency (ER) | payer OTHER ==
[2022-06-27 18:05] VITALS: TEMP 97.7
[2022-06-27] MEDS ORDERED: METHADONE 10 MG TAB PO STA (19:26)
--- NOTE | 2022-06-27 19:33 | ED ---
General Adult HPI - General Chief complaint: Recheck/Abnormal Lab/Rx Stated complaint: Wants Prescription Refill Time Seen by Provider: 06/27/22 18:55 Source: patient, RN notes reviewed Mode of arrival: ambulatory Limitations: no limitations - History of Present Illness Initial comments: 31-year-old female presents to the emergency department complaining of withdrawal symptoms from methadone. States her last dose was on Tuesday while hospitalized on the inpatient psychiatric unit. States she was discharged home and went to obtain her "take home" pack of methadone for the weekend, but they did not have a physician present. States she is feeling queasy and has nasal congestion. Called and spoke with staff on inpatient psychiatric unit who suggested she come to the emergency department for single dose. Patient denies fever, chills, diaphoresis, headache, dizziness, chest pain, abdominal pain, vomiting, dysuria. No thoughts of causing harm to herself or anyone else. - Related Data Home Medications Medication Instructions Recorded Confirmed Ibuprofen [Motrin] 800 mg PO TID-W/MEALS PRN 06/21/22 06/21/22 norgestimate-ethinyl estradioL 1 tab PO DAILY 06/21/22 06/21/22 [Tri-Estarylla Tablet] Previous Rx's Medication Instructions Recorded Amoxic-Pot Clav 875-125Mg 1 each PO BID 3 Days tab 06/25/22 [Augmentin 875-125] Benzocaine 20 % Gel [Orajel] 1 applic MM BID PRN #1 each 06/25/22 Cholecalciferol [Vitamin D3 (25 25 mcg PO DAILY 30 Days tab 06/25/22 Mcg = 1000 Iu)] Divalproex ER [Depakote ER] 1,500 mg PO HS 30 Days tab 06/25/22 Escitalopram [Lexapro] 20 mg PO DAILY 30 Days tab 06/25/22 Methadone [Dolophine] 130 mg PO DAILY tab 06/25/22 Nicotine 14Mg/24Hr Patch [Habitrol] 1 patch TRANSDERM DAILY 14 Days 06/25/22 patch Nicotine Gum (Polacrilex) 2 mg BUCCAL Q4HR PRN 28 Days 06/25/22 [Nicorette] pieceofgum OLANZapine [ZyPREXA] 5 mg PO HS 30 Days tab 06/25/22 Allergies Allergy/AdvReac Type Severity Reaction Status Date / Time ibuprofen [From Motrin] AdvReac Vomiting Verified 06/21/22 13:40 Review of Systems ROS Statement: Those systems with pertinent positive or pertinent negative responses have been documented in the HPI. ROS Other: All systems not noted in ROS Statement are negative. Past Medical History Past Medical History: No Reported History Additional Past Medical History / Comment(s): chronic back and leg pain, h/o childhood leukemia History of Any Multi-Drug Resistant Organisms: None Reported Past Surgical History: Appendectomy Additional Past Surgical History / Comment(s): abdominoplasty Past Psychological History: Anxiety, Bipolar, Depression Smoking Status: Vaper Past Alcohol Use History: None Reported Past Drug Use History: None Reported - Past Family History Father Additional Family Medical History / Comment(s): Father is 52 years of age with possible coronary artery disease. Mother Additional Family Medical History / Comment(s): Mother from emphysema at age 48. Brother(s) Additional Family Medical History / Comment(s): Patient has 2 brothers with no major medical problems. Patient does not have any sisters. General Exam Limitations: no limitations General appearance: alert, in no apparent distress Respiratory exam: Present: normal lung sounds bilaterally. Absent: respiratory distress, wheezes, rales, rhonchi, stridor Cardiovascular Exam: Present: regular rate, normal rhythm GI/Abdominal exam: Present: soft, normal bowel sounds. Absent: distended, tenderness, guarding, rebound, rigid Neurological exam: Present: alert, oriented X3, CN II-XII intact, normal gait Psychiatric exam: Present: normal affect, normal mood Skin exam: Present: warm, dry, intact, normal color. Absent: rash Course Vital Signs 06/27/22 06/27/22 17:57 20:04 Temperature 97.7 F Pulse Rate 87 90 Respiratory 16 18 Rate Blood Pressure 112/71 110/74 O2 Sat by Pulse 97 97 Oximetry - Reevaluation(s) Reevaluation #1: 06/27/22 19:30 Discussed this patient's situation with my attending, Dr. Cruz. Single dose will be given, but explained the patient that this is an exception based on her circumstances. Medical Decision Making - Medical Decision Making 31-year-old female presents to the emergency department requesting a dose of methadone as she is concerned that she is experiencing withdrawal symptoms that include nausea, nasal congestion, and restlessness. Upon exam, patient is well- appearing and in no acute distress. She demonstrates consistent, reasonable, justifiable explanation for missing methadone appointment. Patient was given a single dose in the emergency department. She does have a visit scheduled with psychiatry at [facility] tomorrow. Patient will be discharged home and encouraged to continue adherence to prescribe regimen. Verbalizes understanding and agrees with this plan. Attending: Nancy Was pt. sent in by a medical professional or institution? @ -Mental health provider Did you speak to anyone other than the patient for history? @ -No Did you review nursing and triage notes? @ -Yes, agree Were old charts reviewed? @ -Yes Differential Diagnosis? @ -Withdrawal from methadone, URI, gastroenteritis, viral illness,, this is not meant to be an exhaustive list EKG interpreted by me (3pts min.)? @ -Not applicable X-rays interpreted by me (1pt min.)? @ -Not applicable CT interpreted by me (1pt min.)? @ -Not applicable U/S interpreted by me (1pt. min.)? @ -Not applicable What testing was considered but not performed? (CT, X-rays, U/S, labs)? Why? @Not applicable What meds were considered but not given? Why? @ -None Did you discuss the management of the patient with other professionals? @ -None Did you reconcile home meds? @ -No Was smoking cessation discussed for >3mins.? @ -No Was critical care preformed (if so, how long)? @ -No Were there social determinants of health that impacted care today? How? (Homelessness, low income, unemployed, alcoholism, drug addiction, transportation, low edu. Level, literacy, decrease access to med. care, senior care, rehab)? @ -No Was there de-escalation of care discussed even if they declined? (Discuss DNR or withdrawal of care, Hospice)? @ -No What co-morbidities impacted this encounter? (DM, HTN, Smoking, COPD, CAD, Cancer, CVA, Hep., AIDS, mental health diagnosis, sleep apnea, morbid obesity)? @ -History of drug abuse and mental illness Was patient admitted / discharged? @ -Discharged Undiagnosed new problem with uncertain prognosis? @ -None Drug Therapy requiring intensive monitoring for toxicity (Heparin, Nitro, Insulin, Cardizem)? @ -None Were any procedures done? @ -None Diagnosis/symptom? @ -Withdrawal symptoms Acute, or Chronic, or Acute on Chronic? @ -Acute Uncomplicated (without systemic symptoms) or Complicated (systemic symptoms)? @ -Uncomplicated Side effects of treatment? @ -None Exacerbation, Progression, or Severe Exacerbation] @ -No Poses a threat to life or bodily function? @ -No Disposition Clinical Impression: Methadone withdrawal without complication Disposition: HOME SELF-CARE Condition: Stable Instructions (If sedation given, give patient instructions): Methadone (By mouth) Additional Instructions: Single dose of methadone was given as patient had been hospitalized through Tuesday and was unable to obtain "take-home pack." Follow-up on Tuesday as scheduled. Return to the emergency department with any new, worsening, or concerning symptoms. Is patient prescribed a controlled substance at d/c from ED?: No Referrals: Nonstaff,Physician [Primary Care Provider] - 1-2 days Time of Disposition: 19:33
[2022-06-27 20:09] VITALS: BP 110/74; PULSE 90; RESP 18
== END 2022-06-27 20:09 | disposition home or self-care (01) ==
LOC: EC 17:54
DX: F11.13 Opioid abuse with withdrawal (principal); F41.9 Anxiety disorder, unspecified; F31.9 Bipolar disorder, unspecified; F17.290 Nicotine dependence, other tobacco product, uncomplicated; Z88.6 Allergy status to analgesic agent
CPT/HCPCS: 99282; S0109